=== PATIENT | male | born 1935 | race Caucasian/White ===

== ENCOUNTER 2017-03-28 11:01 | Inpatient (IN) | payer MEDICARE, OTHER ==
[~2017-03-28] VITALS: Ht 177.8 cm; Wt 100.0 kg
[2017-03-28] VITALS (9 sets, daily range): BP systolic 119–161; BP diastolic 50–67
[2017-03-28 11:32] LABS: BASOPHILS # (AUTO) 0.1 X10'3 (0-0.2); BASOPHILS % (AUTO) 0.9 % (0-1); EOSINOPHILS # (AUTO) 0.2 X10'3 (0-0.9); EOSINOPHILS % (AUTO) 2.6 % (0-6); LYMPHOCYTES # (AUTO) 1.2 X10'3 (1.1-4.8); LYMPHOCYTES % (AUTO) 13.1 % (21-51); MEAN CORPUSCULAR HEMOGLOBIN 29.3 PG (27.0-31.0); MEAN CORPUSCULAR HGB CONC 33.2 % (33.0-36.5); MEAN CORPUSCULAR VOLUME 88.3 FL (78-98); MEAN PLATELET VOLUME 6.9 FL (7.4-10.4); MONOCYTES # (AUTO) 0.5 X10'3 (0-0.9); MONOCYTES % (AUTO) 5.9 % (2-12); NEUTROPHILS # (AUTO) 7.2 X10'3 (1.8-7.7); NEUTROPHILS % (AUTO) 77.5 % (42-75); PLATELET COUNT 360 X10'3 (140-440); RED BLOOD COUNT 2.08 X10'6 (4.70-6.10); RED CELL DISTRIBUTION WIDTH 16.2 % (11.5-14.5); WHITE BLOOD COUNT 9.3 X10'3 (4.5-11.0)
[2017-03-28 11:37] LABS: HEMATOCRIT 18.3 % (42.0-52.0); HEMOGLOBIN 6.1 g/dl (14.0-17.9)
[2017-03-28 11:41] LABS: PARTIAL THROMBOPLASTIN TIME 26 SECONDS (22-32); PROTHROMBIN TIME 10.7 SECONDS (9.0-12.0)
[2017-03-28 11:53] LABS: ALANINE AMINOTRANSFERASE 23 U/L (12-78); ALBUMIN 3.3 G/DL (3.4-5.0); ALBUMIN/GLOBULIN RATIO 1.1 (1.1-1.5); ALKALINE PHOSPHATASE 58 IU/L (46-116); ANION GAP 11 (8-16); ASPARTATE AMINO TRANSFERASE 24 U/L (10-37); BILIRUBIN,TOTAL 0.3 MG/DL (0.1-1.0); BLOOD UREA NITROGEN 29 MG/DL (7-18); BUN/CREATININE RATIO 19.3 (5.4-32.0); CALCIUM 8.6 MG/DL (8.5-10.1); CHLORIDE 104 MMOL/L (99-107); GLUCOSE 148 MG/DL (70-104); POTASSIUM 4.2 MMOL/L (3.5-5.1); SODIUM 138 MMOL/L (135-145); TOTAL PROTEIN 6.4 G/DL (6.4-8.2); eGFR 45 ML/MIN
[2017-03-28] MEDS ORDERED: magnesium 2GM in 50ml NS 50 ML IV PRN (12:20)
[2017-03-28] MEDS ORDERED: acetaminophen 325mg tablet PO PRN (12:20)
[2017-03-28] MEDS ORDERED: potassium Cl 20 mEq SR tablet PO PRN ×2 (12:20)
[2017-03-28] MEDS ORDERED: magnesium Cl slow-release 64mg tablet PO PRN (12:20)
[2017-03-28] MEDS ORDERED: magnesium hydroxide 30ml (MOM) UD suspension PO PRN (12:20)
[2017-03-28] MEDS ORDERED: potassium Cl 40MEQ/NS 500ml 500 ML IV PRN ×2 (12:20)
[2017-03-28] MEDS ORDERED: magnesium 4gm in 100ml NS 100 ML IV PRN (12:20)
[2017-03-28] MEDS ORDERED: mag hydrox/Alum hydrox/simeth 30ml oral suspension PO PRN (12:20)
[2017-03-28] MEDS ORDERED: ondansetron/PF 4mg/2ml inj IV PRN (12:20)
[2017-03-28 13:47] LABS: OCCULT BLOOD STOOL POSITIVE (Neg)
[2017-03-28 14:16] LABS: HEMOGLOBIN A1C 6.5 % (4.5-6.2)
[2017-03-28] MEDS ORDERED: INSU100V9 SQ (14:29)
[2017-03-28] MEDS ORDERED: VITA1TAB20 PO (14:29)
[2017-03-28] MEDS ORDERED: HUM7525 SQ (14:29)
[2017-03-28] MEDS ORDERED: TERA10CA4 PO (14:29)
[2017-03-28] MEDS ORDERED: OMEP-50 PO (14:29)
[2017-03-28] MEDS ORDERED: CHOL400C8 PO (14:29)
[2017-03-28] MEDS ORDERED: CARSR60C PO (14:29)
[2017-03-28] MEDS ORDERED: UBID100C16 PO (14:29)
[2017-03-28] MEDS ORDERED: VITA100D6 PO (14:29)
[2017-03-28] MEDS ORDERED: LISI-600 PO (14:29)
[2017-03-28] MEDS ORDERED: IRON150C5 PO (14:29)
[2017-03-28] MEDS ORDERED: METF500T4 PO (14:29)
[2017-03-28] MEDS ORDERED: ASPI-611 PO (14:29)
[2017-03-28] MEDS ORDERED: ATOR20TA PO (14:29)
[2017-03-28] MEDS ORDERED: dextrose ORAL solution 15 GM/59 ML bottle PO PRN ×2 (16:45)
[2017-03-28] MEDS ORDERED: insulin Lispro (HumaLOG) vial - multi-dose SQ SCH (16:45)
[2017-03-28] MEDS ORDERED: dextrose 50%-water 50ml dispensing syringe IV PRN ×2 (16:45)
[2017-03-28] MEDS ORDERED: glucagon, human recombinant 1mg kit SUBCUT PRN (16:45)
[2017-03-28] MEDS ORDERED: MESSAGE TO PHARMACY PO ONE (16:45)
[2017-03-28 17:50] LABS: BASOPHILS # (AUTO) 0.1 X10'3 (0-0.2); BASOPHILS % (AUTO) 0.9 % (0-1); EOSINOPHILS # (AUTO) 0.2 X10'3 (0-0.9); EOSINOPHILS % (AUTO) 1.9 % (0-6); HEMOGLOBIN 8.8 g/dl (14.0-17.9); LYMPHOCYTES # (AUTO) 1.3 X10'3 (1.1-4.8); LYMPHOCYTES % (AUTO) 10.7 % (21-51); MEAN CORPUSCULAR HEMOGLOBIN 29.9 PG (27.0-31.0); MEAN CORPUSCULAR VOLUME 87.7 FL (78-98); MEAN PLATELET VOLUME 7.2 FL (7.4-10.4); MONOCYTES # (AUTO) 0.7 X10'3 (0-0.9); MONOCYTES % (AUTO) 5.8 % (2-12); NEUTROPHILS # (AUTO) 9.7 X10'3 (1.8-7.7); NEUTROPHILS % (AUTO) 80.7 % (42-75); PLATELET COUNT 374 X10'3 (140-440); RED BLOOD COUNT 2.96 X10'6 (4.70-6.10); RED CELL DISTRIBUTION WIDTH 15.9 % (11.5-14.5)
[2017-03-28] MEDS: carVEDilol 3.125mg tablet PO SCH (20:34)
[2017-03-28] MEDS: insulin glargine (Lantus) pen - multi-dose SQ SCH (21:00)
[2017-03-29] VITALS (12 sets, daily range): BP systolic 111–141; BP diastolic 41–72
[2017-03-29 00:02] LABS: HEMOGLOBIN 9.7 g/dl (14.0-17.9); MEAN CORPUSCULAR HGB CONC 33.5 % (33.0-36.5); MEAN CORPUSCULAR VOLUME 89.8 FL (78-98); MEAN PLATELET VOLUME 7.5 FL (7.4-10.4); PLATELET COUNT 377 X10'3 (140-440); RED BLOOD COUNT 3.23 X10'6 (4.70-6.10); RED CELL DISTRIBUTION WIDTH 15.6 % (11.5-14.5); WHITE BLOOD COUNT 15.8 X10'3 (4.5-11.0)
[2017-03-29] MEDS ORDERED: furosemide 10 MG/1 ML 10ml inj IV ONE (00:05)
[2017-03-29] MEDS ORDERED: normal saline 1000ml 1,000 ML IV SCH (06:18)
[2017-03-29] MEDS ORDERED: simethicone 40mg/0.6ml oral drops 30ml MC ONE (06:20)
[2017-03-29] MEDS ORDERED: MIDAZolam 1mg/ml 10ml vial IV PRN (06:20)
[2017-03-29] MEDS ORDERED: fentaNYL/PF 50MCG/1 ML 2ML syringe IV PRN (06:20)
[2017-03-29] MEDS ORDERED: LIDOcaine Viscous 15ml cup PO ONE (06:20)
[2017-03-29 06:42] LABS: BASOPHILS # (AUTO) 0.1 X10'3 (0-0.2); BASOPHILS % (AUTO) 0.7 % (0-1); EOSINOPHILS # (AUTO) 0.3 X10'3 (0-0.9); EOSINOPHILS % (AUTO) 1.7 % (0-6); HEMOGLOBIN 9.3 g/dl (14.0-17.9); LYMPHOCYTES # (AUTO) 1.7 X10'3 (1.1-4.8); MEAN CORPUSCULAR HEMOGLOBIN 30.3 PG (27.0-31.0); MEAN CORPUSCULAR HGB CONC 34.5 % (33.0-36.5); MEAN CORPUSCULAR VOLUME 87.7 FL (78-98); MEAN PLATELET VOLUME 7.3 FL (7.4-10.4); MONOCYTES % (AUTO) 7.1 % (2-12); NEUTROPHILS # (AUTO) 11.4 X10'3 (1.8-7.7); NEUTROPHILS % (AUTO) 78.5 % (42-75); PLATELET COUNT 383 X10'3 (140-440); RED BLOOD COUNT 3.08 X10'6 (4.70-6.10); RED CELL DISTRIBUTION WIDTH 15.8 % (11.5-14.5); WHITE BLOOD COUNT 14.5 X10'3 (4.5-11.0)
[2017-03-29 07:31] LABS: ALANINE AMINOTRANSFERASE 22 U/L (12-78); ALBUMIN 3.4 G/DL (3.4-5.0); ALBUMIN/GLOBULIN RATIO 1.1 (1.1-1.5); ALKALINE PHOSPHATASE 67 IU/L (46-116); ANION GAP 11 (8-16); ASPARTATE AMINO TRANSFERASE 25 U/L (10-37); BILIRUBIN,TOTAL 0.7 MG/DL (0.1-1.0); BLOOD UREA NITROGEN 25 MG/DL (7-18); BUN/CREATININE RATIO 17.9 (5.4-32.0); CALCIUM 8.8 MG/DL (8.5-10.1); CHLORIDE 102 MMOL/L (99-107); CHOL/HDL RATIO 2.9 (0.00-4.99); CHOLESTEROL 128 MG/DL (0-200); GLUCOSE 154 MG/DL (70-104); HDL CHOLESTEROL 44 MG/DL (35-60); LDL CHOLESTEROL 74 MG/DL (50-100); POTASSIUM 4.2 MMOL/L (3.5-5.1); SODIUM 137 MMOL/L (135-145); TOTAL CARBON DIOXIDE 24.1 MMOL/L (24-32); TOTAL PROTEIN 6.6 G/DL (6.4-8.2); TRIGLYCERIDES 78 MG/DL (20-135); eGFR 48 ML/MIN
[2017-03-29] MEDS: K and/or MAG REPLACEMENT MC SCH (08:00)
[2017-03-29] MEDS: carVEDilol 3.125mg tablet PO SCH ×2 (08:00→20:00)
[2017-03-29] MEDS ORDERED: MIDAZolam 1mg/ml 10ml vial ONE (09:20)
[2017-03-29] MEDS ORDERED: LIDOcaine Viscous 15ml cup ONE (09:20)
[2017-03-29] MEDS ORDERED: fentaNYL/PF 50MCG/1 ML 2ML syringe ONE (09:20)
[2017-03-29] MEDS ORDERED: pneumococcal 23-VAL P-sac vacc 25 mcg/0.5ml vial IMVAC ONE (10:00)
[2017-03-29 12:49] LABS: BASOPHILS # (AUTO) 0.1 X10'3 (0-0.2); BASOPHILS % (AUTO) 0.9 % (0-1); EOSINOPHILS # (AUTO) 0.1 X10'3 (0-0.9); EOSINOPHILS % (AUTO) 0.8 % (0-6); HEMATOCRIT 26.6 % (42.0-52.0); HEMOGLOBIN 8.9 g/dl (14.0-17.9); LYMPHOCYTES # (AUTO) 1.2 X10'3 (1.1-4.8); LYMPHOCYTES % (AUTO) 10.3 % (21-51); MEAN CORPUSCULAR HEMOGLOBIN 29.9 PG (27.0-31.0); MEAN CORPUSCULAR HGB CONC 33.6 % (33.0-36.5); MEAN PLATELET VOLUME 7.5 FL (7.4-10.4); MONOCYTES # (AUTO) 0.8 X10'3 (0-0.9); MONOCYTES % (AUTO) 6.6 % (2-12); NEUTROPHILS # (AUTO) 9.6 X10'3 (1.8-7.7); NEUTROPHILS % (AUTO) 81.4 % (42-75); PLATELET COUNT 388 X10'3 (140-440); RED BLOOD COUNT 2.99 X10'6 (4.70-6.10); RED CELL DISTRIBUTION WIDTH 15.9 % (11.5-14.5); WHITE BLOOD COUNT 11.8 X10'3 (4.5-11.0)
[2017-03-29] MEDS ORDERED: diatr meglu/diatrizoate 30ml oral sol.-(3 dose) bottle PO PRN (17:25)
[2017-03-29 18:20] LABS: BASOPHILS % (AUTO) 0.5 % (0-1); EOSINOPHILS # (AUTO) 0.2 X10'3 (0-0.9); EOSINOPHILS % (AUTO) 1.7 % (0-6); HEMATOCRIT 26.4 % (42.0-52.0); LYMPHOCYTES # (AUTO) 1.8 X10'3 (1.1-4.8); MEAN CORPUSCULAR HEMOGLOBIN 30.2 PG (27.0-31.0); MEAN CORPUSCULAR HGB CONC 34.2 % (33.0-36.5); MEAN CORPUSCULAR VOLUME 88.3 FL (78-98); MEAN PLATELET VOLUME 7.4 FL (7.4-10.4); MONOCYTES % (AUTO) 8.9 % (2-12); NEUTROPHILS # (AUTO) 7.8 X10'3 (1.8-7.7); NEUTROPHILS % (AUTO) 71.9 % (42-75); PLATELET COUNT 375 X10'3 (140-440); RED BLOOD COUNT 2.99 X10'6 (4.70-6.10); RED CELL DISTRIBUTION WIDTH 16.1 % (11.5-14.5); WHITE BLOOD COUNT 10.8 X10'3 (4.5-11.0)
[2017-03-29] MEDS ORDERED: diatr meglu/diatrizoate 30ml oral sol.-(3 dose) bottle PO SCH (18:21)
[2017-03-29] MEDS: insulin glargine (Lantus) pen - multi-dose SQ SCH (21:00)
[2017-03-29] MEDS: diatr meglu/diatrizoate 30ml oral sol.-(3 dose) bottle PO SCH (21:38)
[2017-03-30] VITALS (10 sets, daily range): BP systolic 111–142; BP diastolic 41–61
[2017-03-30 01:53] LABS: BASOPHILS # (AUTO) 0.1 X10'3 (0-0.2); BASOPHILS % (AUTO) 0.9 % (0-1); EOSINOPHILS # (AUTO) 0.2 X10'3 (0-0.9); EOSINOPHILS % (AUTO) 1.6 % (0-6); HEMATOCRIT 27.9 % (42.0-52.0); HEMOGLOBIN 9.3 g/dl (14.0-17.9); MEAN CORPUSCULAR HEMOGLOBIN 29.7 PG (27.0-31.0); MEAN CORPUSCULAR HGB CONC 33.3 % (33.0-36.5); MEAN CORPUSCULAR VOLUME 89.1 FL (78-98); MEAN PLATELET VOLUME 7.7 FL (7.4-10.4); MONOCYTES # (AUTO) 0.8 X10'3 (0-0.9); MONOCYTES % (AUTO) 8.4 % (2-12); NEUTROPHILS # (AUTO) 6.5 X10'3 (1.8-7.7); NEUTROPHILS % (AUTO) 68.1 % (42-75); PLATELET COUNT 406 X10'3 (140-440); RED BLOOD COUNT 3.13 X10'6 (4.70-6.10); RED CELL DISTRIBUTION WIDTH 15.6 % (11.5-14.5); WHITE BLOOD COUNT 9.6 X10'3 (4.5-11.0)
[2017-03-30 07:06] LABS: BASOPHILS # (AUTO) 0.1 X10'3 (0-0.2); BASOPHILS % (AUTO) 1.1 % (0-1); EOSINOPHILS # (AUTO) 0.2 X10'3 (0-0.9); EOSINOPHILS % (AUTO) 2.9 % (0-6); HEMATOCRIT 25.2 % (42.0-52.0); HEMOGLOBIN 8.7 g/dl (14.0-17.9); LYMPHOCYTES # (AUTO) 2.1 X10'3 (1.1-4.8); LYMPHOCYTES % (AUTO) 24.5 % (21-51); MEAN CORPUSCULAR HEMOGLOBIN 30.3 PG (27.0-31.0); MEAN CORPUSCULAR HGB CONC 34.5 % (33.0-36.5); MEAN CORPUSCULAR VOLUME 87.7 FL (78-98); MEAN PLATELET VOLUME 7.5 FL (7.4-10.4); MONOCYTES # (AUTO) 0.8 X10'3 (0-0.9); MONOCYTES % (AUTO) 9.9 % (2-12); NEUTROPHILS # (AUTO) 5.3 X10'3 (1.8-7.7); NEUTROPHILS % (AUTO) 61.6 % (42-75); PLATELET COUNT 399 X10'3 (140-440); RED BLOOD COUNT 2.87 X10'6 (4.70-6.10); WHITE BLOOD COUNT 8.5 X10'3 (4.5-11.0)
[2017-03-30] MEDS: diatr meglu/diatrizoate 30ml oral sol.-(3 dose) bottle PO SCH ×2 (07:20→10:21)
[2017-03-30 07:23] LABS: ALANINE AMINOTRANSFERASE 21 U/L (12-78); ALBUMIN/GLOBULIN RATIO 0.9 (1.1-1.5); ALKALINE PHOSPHATASE 58 IU/L (46-116); ANION GAP 6 (8-16); ASPARTATE AMINO TRANSFERASE 19 U/L (10-37); BILIRUBIN,TOTAL 0.6 MG/DL (0.1-1.0); BLOOD UREA NITROGEN 21 MG/DL (7-18); BUN/CREATININE RATIO 16.2 (5.4-32.0); CALCIUM 8.7 MG/DL (8.5-10.1); CHLORIDE 104 MMOL/L (99-107); GLUCOSE 142 MG/DL (70-104); MAGNESIUM 2.1 MG/DL (1.5-2.4); POTASSIUM 4.3 MMOL/L (3.5-5.1); SODIUM 138 MMOL/L (135-145); TOTAL CARBON DIOXIDE 27.7 MMOL/L (24-32); TOTAL PROTEIN 6.3 G/DL (6.4-8.2); eGFR 53 ML/MIN
[2017-03-30] MEDS: K and/or MAG REPLACEMENT MC SCH (08:00)
[2017-03-30] MEDS: carVEDilol 3.125mg tablet PO SCH (09:30)
[2017-03-30] MEDS ORDERED: furosemide 20 MG/2 ML vial IV ONE (10:10)
[2017-03-30 15:34] LABS: BASOPHILS % (AUTO) 0.5 % (0-1); EOSINOPHILS # (AUTO) 0.2 X10'3 (0-0.9); EOSINOPHILS % (AUTO) 2.5 % (0-6); HEMATOCRIT 32.1 % (42.0-52.0); HEMOGLOBIN 10.8 g/dl (14.0-17.9); MEAN CORPUSCULAR HEMOGLOBIN 30.2 PG (27.0-31.0); MEAN CORPUSCULAR HGB CONC 33.5 % (33.0-36.5); MEAN CORPUSCULAR VOLUME 90.2 FL (78-98); MEAN PLATELET VOLUME 7.5 FL (7.4-10.4); MONOCYTES # (AUTO) 0.8 X10'3 (0-0.9); MONOCYTES % (AUTO) 8.5 % (2-12); NEUTROPHILS # (AUTO) 6.8 X10'3 (1.8-7.7); NEUTROPHILS % (AUTO) 68.5 % (42-75); PLATELET COUNT 417 X10'3 (140-440); RED BLOOD COUNT 3.56 X10'6 (4.70-6.10); RED CELL DISTRIBUTION WIDTH 15.4 % (11.5-14.5); WHITE BLOOD COUNT 9.9 X10'3 (4.5-11.0)
[2017-03-30 19:19] LABS: BASOPHILS # (AUTO) 0.1 X10'3 (0-0.2); BASOPHILS % (AUTO) 0.9 % (0-1); EOSINOPHILS # (AUTO) 0.2 X10'3 (0-0.9); EOSINOPHILS % (AUTO) 2.6 % (0-6); HEMATOCRIT 30.6 % (42.0-52.0); HEMOGLOBIN 10.3 g/dl (14.0-17.9); LYMPHOCYTES # (AUTO) 1.8 X10'3 (1.1-4.8); LYMPHOCYTES % (AUTO) 19.9 % (21-51); MEAN CORPUSCULAR HEMOGLOBIN 30.5 PG (27.0-31.0); MEAN CORPUSCULAR HGB CONC 33.8 % (33.0-36.5); MEAN CORPUSCULAR VOLUME 90.2 FL (78-98); MONOCYTES # (AUTO) 0.9 X10'3 (0-0.9); MONOCYTES % (AUTO) 9.8 % (2-12); NEUTROPHILS # (AUTO) 5.9 X10'3 (1.8-7.7); NEUTROPHILS % (AUTO) 66.8 % (42-75); PLATELET COUNT 412 X10'3 (140-440); RED BLOOD COUNT 3.39 X10'6 (4.70-6.10); RED CELL DISTRIBUTION WIDTH 16.2 % (11.5-14.5); WHITE BLOOD COUNT 8.9 X10'3 (4.5-11.0)
[2017-03-30] MEDS ORDERED: lisinopril 2.5mg tablet PO SCH (21:00)
[2017-03-30] MEDS: insulin glargine (Lantus) pen - multi-dose SQ SCH (21:00)
[2017-03-31 03:00] VITALS: BP 108/55
[2017-03-31 06:00] VITALS: BP 129/57
[2017-03-31 06:45] LABS: BASOPHILS # (AUTO) 0.1 X10'3 (0-0.2); BASOPHILS % (AUTO) 0.7 % (0-1); EOSINOPHILS # (AUTO) 0.4 X10'3 (0-0.9); HEMATOCRIT 28.8 % (42.0-52.0); HEMOGLOBIN 9.6 g/dl (14.0-17.9); LYMPHOCYTES # (AUTO) 1.9 X10'3 (1.1-4.8); LYMPHOCYTES % (AUTO) 22.4 % (21-51); MEAN CORPUSCULAR HEMOGLOBIN 30.3 PG (27.0-31.0); MEAN CORPUSCULAR HGB CONC 33.4 % (33.0-36.5); MEAN CORPUSCULAR VOLUME 90.5 FL (78-98); MEAN PLATELET VOLUME 7.3 FL (7.4-10.4); MONOCYTES # (AUTO) 0.9 X10'3 (0-0.9); MONOCYTES % (AUTO) 9.9 % (2-12); NEUTROPHILS # (AUTO) 5.4 X10'3 (1.8-7.7); PLATELET COUNT 400 X10'3 (140-440); RED BLOOD COUNT 3.18 X10'6 (4.70-6.10); RED CELL DISTRIBUTION WIDTH 15.8 % (11.5-14.5); WHITE BLOOD COUNT 8.7 X10'3 (4.5-11.0)
[2017-03-31 07:09] LABS: ALANINE AMINOTRANSFERASE 13 U/L (12-78); ALBUMIN 2.8 G/DL (3.4-5.0); ALBUMIN/GLOBULIN RATIO 0.9 (1.1-1.5); ALKALINE PHOSPHATASE 54 IU/L (46-116); ANION GAP 7 (8-16); ASPARTATE AMINO TRANSFERASE 17 U/L (10-37); BILIRUBIN,TOTAL 0.6 MG/DL (0.1-1.0); BLOOD UREA NITROGEN 19 MG/DL (7-18); BUN/CREATININE RATIO 17.3 (5.4-32.0); CALCIUM 8.8 MG/DL (8.5-10.1); CHLORIDE 105 MMOL/L (99-107); GLUCOSE 158 MG/DL (70-104); MAGNESIUM 1.9 MG/DL (1.5-2.4); SODIUM 139 MMOL/L (135-145); TOTAL CARBON DIOXIDE 27.5 MMOL/L (24-32); TOTAL PROTEIN 5.9 G/DL (6.4-8.2); eGFR 64 ML/MIN
[2017-03-31] MEDS: K and/or MAG REPLACEMENT MC SCH (08:00)
[2017-03-31 11:00] VITALS: BP 136/62
[2017-03-31 12:03] LABS: BASOPHILS # (AUTO) 0.1 X10'3 (0-0.2); BASOPHILS % (AUTO) 0.6 % (0-1); EOSINOPHILS # (AUTO) 0.4 X10'3 (0-0.9); EOSINOPHILS % (AUTO) 4.6 % (0-6); HEMOGLOBIN 10.3 g/dl (14.0-17.9); LYMPHOCYTES # (AUTO) 1.6 X10'3 (1.1-4.8); MEAN CORPUSCULAR HEMOGLOBIN 30.2 PG (27.0-31.0); MEAN CORPUSCULAR HGB CONC 33.1 % (33.0-36.5); MEAN CORPUSCULAR VOLUME 91.1 FL (78-98); MEAN PLATELET VOLUME 7.2 FL (7.4-10.4); MONOCYTES # (AUTO) 0.8 X10'3 (0-0.9); MONOCYTES % (AUTO) 9.2 % (2-12); NEUTROPHILS # (AUTO) 5.8 X10'3 (1.8-7.7); NEUTROPHILS % (AUTO) 66.6 % (42-75); PLATELET COUNT 429 X10'3 (140-440); RED CELL DISTRIBUTION WIDTH 15.7 % (11.5-14.5); WHITE BLOOD COUNT 8.6 X10'3 (4.5-11.0)
== END 2017-03-31 15:44 | disposition home or self-care (01) | DRG 377 ==
LOC: ER 11:01 → ED HOLD 12:18 → PCU 3S 18:55
PROVIDERS: ADMIT Internal Medicine; ATTEND Family Medicine
PROC: 30233N1 Transfusion of Nonautologous Red Blood Cells into Peripheral Vein, Percutaneous Approach (ICD-10-PCS; principal; 2017-03-28)
PROC: 0DJ08ZZ Inspection of Upper Intestinal Tract, Via Natural or Artificial Opening Endoscopic (ICD-10-PCS; 2017-03-29)
PROC: BW211ZZ Computerized Tomography (CT Scan) of Abdomen and Pelvis using Low Osmolar Contrast (ICD-10-PCS; 2017-03-30)
DX: K92.2 Gastrointestinal hemorrhage, unspecified (principal); I21.4 Non-ST elevation (NSTEMI) myocardial infarction; E11.51 Type 2 diabetes mellitus with diabetic peripheral angiopathy without gangrene; I08.1 Rheumatic disorders of both mitral and tricuspid valves; I44.1 Atrioventricular block, second degree; I50.22 Chronic systolic (congestive) heart failure; I11.0 Hypertensive heart disease with heart failure; D62 Acute posthemorrhagic anemia; I42.9 Cardiomyopathy, unspecified; E66.9 Obesity, unspecified; E78.5 Hyperlipidemia, unspecified; I25.10 Atherosclerotic heart disease of native coronary artery without angina pectoris; I45.10 Unspecified right bundle-branch block; K21.9 Gastro-esophageal reflux disease without esophagitis; K64.9 Unspecified hemorrhoids; Z95.5 Presence of coronary angioplasty implant and graft; Z95.1 Presence of aortocoronary bypass graft; Z79.82 Long term (current) use of aspirin; I25.2 Old myocardial infarction; Z79.84 Long term (current) use of oral hypoglycemic drugs; Z79.899 Other long term (current) drug therapy; Z68.31 Body mass index [BMI] 31.0-31.9, adult
CPT/HCPCS: 36415; 71045; 74176; 80053; 80061; 82272; 82948; 83036; 83735; 83880; 84484; 85025; 85027; 85610; 85730; 86885; 86900; 86901; 86920; 87070; 93005; 93306; 99285; A6258; G0500; J1815; J1940; J2250; J3010; J7030; P9016; Q9963

== ENCOUNTER 2017-08-03 10:09 | Observation (INO) | payer OTHER, MEDICARE ==
[2017-08-03] VITALS (15 sets, daily range): BP systolic 135–170; BP diastolic 64–106
[~2017-08-03] VITALS: Ht 180.3 cm; Wt 95.5 kg
[~2017-08-03 10:09] MED LIST: ASPI-611 PO; ATOR20TA PO; CARSR60C PO; CHOL400C8 PO; HUM7525 SQ; INSU100V9 SQ; IRON150C5 PO; LISI-600 PO; METF500T6 PO; OMEP-50 PO; TERA10CA4 PO; UBID100C16 PO; VITA100D6 PO; VITA1TAB20 PO
[2017-08-03] MEDS ORDERED: normal saline 1000ML IV soln IV ONE (10:40)
[2017-08-03 11:03] LABS: BASOPHILS # (AUTO) 0.1 X10'3 (0-0.2); BASOPHILS % (AUTO) 1.6 % (0-1); EOSINOPHILS # (AUTO) 0.6 X10'3 (0-0.9); EOSINOPHILS % (AUTO) 7.1 % (0-6); LYMPHOCYTES # (AUTO) 1.6 X10'3 (1.1-4.8); LYMPHOCYTES % (AUTO) 18.9 % (21-51); MEAN CORPUSCULAR HEMOGLOBIN 26.3 PG (27.0-31.0); MEAN CORPUSCULAR HGB CONC 32.2 % (33.0-36.5); MEAN CORPUSCULAR VOLUME 81.8 FL (78-98); MEAN PLATELET VOLUME 7.5 FL (7.4-10.4); MONOCYTES # (AUTO) 0.8 X10'3 (0-0.9); MONOCYTES % (AUTO) 9.4 % (2-12); NEUTROPHILS # (AUTO) 5.2 X10'3 (1.8-7.7); PLATELET COUNT 310 X10'3 (140-440); RED BLOOD COUNT 2.47 X10'6 (4.70-6.10); RED CELL DISTRIBUTION WIDTH 17.1 % (11.5-14.5); WHITE BLOOD COUNT 8.2 X10'3 (4.5-11.0)
[2017-08-03 11:08] LABS: HEMATOCRIT 20.2 % (42.0-52.0); HEMOGLOBIN 6.5 g/dl (14.0-17.9)
[2017-08-03 11:13] LABS: PROTHROMBIN TIME 10.6 SECONDS (9.0-12.0)
[2017-08-03 11:26] LABS: ALANINE AMINOTRANSFERASE 18 U/L (12-78); ALBUMIN 3.4 G/DL (3.4-5.0); ALKALINE PHOSPHATASE 56 IU/L (46-116); ANION GAP 10 (8-16); ASPARTATE AMINO TRANSFERASE 15 U/L (10-37); BILIRUBIN,TOTAL 0.3 MG/DL (0.1-1.0); BLOOD UREA NITROGEN 20 MG/DL (7-18); BUN/CREATININE RATIO 16.7 (5.4-32.0); CALCIUM 8.7 MG/DL (8.5-10.1); CHLORIDE 105 MMOL/L (99-107); GLUCOSE 115 MG/DL (70-104); POTASSIUM 4.5 MMOL/L (3.5-5.1); SODIUM 140 MMOL/L (135-145); TOTAL CARBON DIOXIDE 25.3 MMOL/L (24-32); TOTAL PROTEIN 6.9 G/DL (6.4-8.2); eGFR 58 ML/MIN
[2017-08-03 11:36] LABS: CLARITY,URINE CLEAR (Clear); COLOR,URINE YELLOW (Yellow); GLUCOSE, URINE NEGATIVE (Neg); KETONES,URINE NEGATIVE (Neg); LEUKOCYTE ESTERASE ,URINE NEGATIVE (Neg); NITRITES, URINE NEGATIVE (Neg); OCCULT BLOOD,URINE NEGATIVE (Neg); PROTEIN,URINE NEGATIVE (Neg); UA COLLECTION TYPE CLN CATCH MIDSTREAM; UROBILINOGEN,URINE 0.2 E.U/dL (0.2-1.0)
[2017-08-03] MEDS ORDERED: magnesium Cl slow-release 64mg tablet PO PRN (11:55)
[2017-08-03] MEDS ORDERED: magnesium 4gm in 100ml NS 100 ML IV PRN (11:55)
[2017-08-03] MEDS ORDERED: magnesium hydroxide 30ml (MOM) UD suspension PO PRN (11:55)
[2017-08-03] MEDS ORDERED: potassium Cl 40MEQ/NS 500ml 500 ML IV PRN ×2 (11:55)
[2017-08-03] MEDS ORDERED: potassium Cl 20 mEq SR tablet PO PRN ×2 (11:55)
[2017-08-03] MEDS ORDERED: magnesium 2GM in 50ml NS 50 ML IV PRN (11:55)
[2017-08-03] MEDS ORDERED: ondansetron/PF 4mg/2ml inj IV PRN (11:55)
[2017-08-03] MEDS ORDERED: mag hydrox/Alum hydrox/simeth 30ml oral suspension PO PRN (11:55)
[2017-08-03] MEDS ORDERED: acetaminophen 325mg tablet PO PRN (11:55)
[2017-08-03] MEDS ORDERED: K and/or MAG REPLACEMENT MC SCH (11:55)
[2017-08-03] MEDS ORDERED: CARV3.122 PO (12:21)
[2017-08-03] MEDS ORDERED: FURO20TA4 PO (12:29)
[2017-08-03 13:07] LABS: HEMOGLOBIN A1C 6.5 % (4.5-6.2)
[2017-08-03] MEDS ORDERED: furosemide 40mg/4ml inj IV ONE (16:40)
[2017-08-03] MEDS ORDERED: carVEDilol 3.125mg tablet PO SCH (20:00)
[2017-08-03] MEDS ORDERED: temazepam 15mg capsule PO PRN (21:00)
[2017-08-03] MEDS ORDERED: lisinopril 20mg tablet PO SCH (21:00)
[2017-08-03] MEDS ORDERED: insulin glargine (Lantus) pen - multi-dose SQ SCH (21:00)
[2017-08-03] MEDS ORDERED: atorvastatin 20mg tablet PO SCH (21:00)
[2017-08-04] MEDS ORDERED: pantoprazole 40mg Tablet.DR PO SCH (07:30)
[2017-08-04] MEDS ORDERED: aspirin 81mg tablet.DR PO SCH (08:00)
== END 2017-08-03 18:59 | disposition home or self-care (01) ==
LOC: ER 10:09 → ED HOLD 11:52
PROVIDERS: ADMIT Family Medicine; ATTEND Family Medicine
DX: D64.9 Anemia, unspecified (principal); I11.0 Hypertensive heart disease with heart failure; I50.22 Chronic systolic (congestive) heart failure; E78.5 Hyperlipidemia, unspecified; E11.9 Type 2 diabetes mellitus without complications; I25.10 Atherosclerotic heart disease of native coronary artery without angina pectoris; K21.9 Gastro-esophageal reflux disease without esophagitis; Z79.4 Long term (current) use of insulin; Z95.1 Presence of aortocoronary bypass graft
CPT/HCPCS: 36415; 36430; 71045; 80053; 81003; 83036; 85025; 85610; 86885; 86900; 86901; 86920; 87070; 96374; 99291; G0378; J1940; J7030; P9016; 93005; 96361; J1815

== ENCOUNTER 2018-09-17 18:10 | Inpatient (IN) | payer MEDICARE, OTHER ==
[~2018-09-17] VITALS: Ht 177.8 cm; Wt 97.0 kg
[~2018-09-17 18:10] MED LIST changes: -CARSR60C PO; +CARV3.122 PO; +FURO20TA4 PO; -METF500T6 PO; -TERA10CA4 PO
[2018-09-17 18:48] LABS: HEMOGLOBIN 8.9 g/dl (14.0-17.9); MEAN PLATELET VOLUME 7.5 FL (7.4-10.4); WHITE BLOOD COUNT 7.2 X10'3 (4.5-11.0)
[2018-09-17 18:50] LABS: BASOPHILS # (AUTO) 0.1 X10'3 (0-0.2); BASOPHILS % (AUTO) 1.9 % (0-1); EOSINOPHILS # (AUTO) 0.4 X10'3 (0-0.9); EOSINOPHILS % (AUTO) 5.9 % (0-6); HEMATOCRIT 26.3 % (42.0-52.0); LYMPHOCYTES # (AUTO) 1.3 X10'3 (1.1-4.8); MEAN CORPUSCULAR HGB CONC 33.8 g/dL (33.0-36.5); MEAN CORPUSCULAR VOLUME 97.7 FL (78-98); MONOCYTES # (AUTO) 0.6 X10'3 (0-0.9); MONOCYTES % (AUTO) 8.8 % (2-12); NEUTROPHILS # (AUTO) 4.7 X10'3 (1.8-7.7); NEUTROPHILS % (AUTO) 65.4 % (42-75); PLATELET COUNT 325 X10'3 (140-440); RED BLOOD COUNT 2.69 X10'6 (4.70-6.10); RED CELL DISTRIBUTION WIDTH 19.2 % (11.5-14.5)
[2018-09-17 18:57] LABS: ALANINE AMINOTRANSFERASE 22 U/L (12-78); ALBUMIN 3.4 G/DL (3.4-5.0); ALKALINE PHOSPHATASE 61 IU/L (46-116); ANION GAP 7 (8-16); ASPARTATE AMINO TRANSFERASE 11 U/L (10-37); BILIRUBIN,TOTAL 0.4 MG/DL (0.1-1.0); BLOOD UREA NITROGEN 22 MG/DL (7-18); CALCIUM 8.6 MG/DL (8.5-10.1); CHLORIDE 103 MMOL/L (99-107); GLUCOSE 149 MG/DL (70-104); POTASSIUM 4.6 MMOL/L (3.5-5.1); SODIUM 134 MMOL/L (135-145); TOTAL PROTEIN 6.8 G/DL (6.4-8.2); eGFR 64 ML/MIN
[2018-09-17 19:02] LABS: PARTIAL THROMBOPLASTIN TIME 30 SECONDS (22-32)
[2018-09-17 19:29] LABS: ANISOCYTOSIS 2+; ELLIPTOCYTES FEW; PLATELET ESTIMATE NORMAL
[2018-09-17] MEDS ORDERED: aspirin 325mg tablet PO ONE (19:55)
[2018-09-17] MEDS ORDERED: TERA2CAP4 PO (20:05)
[2018-09-17] MEDS ORDERED: UBID100C16 PO (20:06)
[2018-09-17] MEDS ORDERED: dextrose ORAL solution 15 GM/59 ML bottle PO PRN ×2 (20:40)
[2018-09-17] MEDS ORDERED: MESSAGE TO PHARMACY PO ONE (20:40)
[2018-09-17] MEDS ORDERED: mag hydrox/Alum hydrox/simeth 30ml oral suspension PO PRN (20:40)
[2018-09-17] MEDS ORDERED: acetaminophen 325mg tablet PO PRN ×2 (20:40)
[2018-09-17] MEDS ORDERED: magnesium hydroxide 30ml (MOM) UD suspension PO PRN (20:40)
[2018-09-17] MEDS ORDERED: dextrose 50%-water 50ml dispensing syringe IV PRN ×2 (20:40)
[2018-09-17] MEDS ORDERED: glucagon, human recombinant 1mg kit SUBCUT PRN (20:40)
[2018-09-17] MEDS ORDERED: [UNRECOGNIZED DRUG - OTHER] SQ SCH (21:00)
[2018-09-17] MEDS ORDERED: INSULIN ASPART SQ SCH (21:00)
[2018-09-17] MEDS ORDERED: non-formulary drug (Insulin Glargine,Hum.rec.anlog (Lantus) 20 UNIT) SQ SCH (21:00)
[2018-09-17] MEDS: insulin glargine (Lantus) pen - multi-dose SQ SCH (21:00)
[2018-09-17] MEDS ORDERED: INSULIN ASPART PROTAMINE SQ SCH (21:00)
[2018-09-17] MEDS: lisinopril 20mg tablet PO SCH (21:08)
[2018-09-17] MEDS: atorvastatin 20mg tablet PO SCH (21:08)
--- NOTE | 2018-09-17 21:50 | NUR ---
Patient report received from SJ Sesay. Patient arrived on unit via wheelchair, escorted by SJ Schmidt. 2 RN skin check performed with SJ Bowles, MRSA swab taken, patient DARTED, meds reviewed, physician orders reviewed. Belongings put in patient belonging bag and hung in closet, shoes in closet. Patient provided denture case and hearing aid case, remained with patient. Patient's glasses remain with patient. Physical assessment performed. Patient noted to have 5/10 pressure in chest. Will continue to monitor.
[2018-09-17 22:37] LABS: HEMOGLOBIN A1C 6.1 % (4.5-6.2)
[2018-09-17 23:00] VITALS: BP 154/60
[2018-09-17] MEDS ORDERED: carVEDilol 3.125mg tablet PO SCH (23:07)
[2018-09-18] VITALS (14 sets, daily range): BP systolic 87–144; BP diastolic 37–92
[2018-09-18] MEDS ORDERED: heparin 10,000 units/1 ML INJ IV ONE (01:15)
[2018-09-18] MEDS ORDERED: heparin 10,000 units/1 ML INJ IV PRN (01:15)
[2018-09-18] MEDS: heparin 25,000 UNIT/250ml bag 250 ML IV SCH ×2 (01:59→09:45)
--- NOTE | 2018-09-18 05:15 | NUR ---
Weighed patient for heparin protocol and he weighs 97.4 kg.
--- NOTE | 2018-09-18 06:22 | NUR ---
Problems reprioritized. Patient report given, questions answered & plan of care reviewed with SJ Lima.
[2018-09-18 06:44] LABS: BASOPHILS # (AUTO) 0.1 X10'3 (0-0.2); BASOPHILS % (AUTO) 1.3 % (0-1); EOSINOPHILS # (AUTO) 0.3 X10'3 (0-0.9); EOSINOPHILS % (AUTO) 4.2 % (0-6); HEMATOCRIT 25.8 % (42.0-52.0); HEMOGLOBIN 8.6 g/dl (14.0-17.9); LYMPHOCYTES # (AUTO) 1.6 X10'3 (1.1-4.8); LYMPHOCYTES % (AUTO) 18.8 % (21-51); MEAN CORPUSCULAR HEMOGLOBIN 32.8 PG (27.0-31.0); MEAN CORPUSCULAR HGB CONC 33.4 g/dL (33.0-36.5); MEAN CORPUSCULAR VOLUME 98.3 FL (78-98); MEAN PLATELET VOLUME 7.9 FL (7.4-10.4); MONOCYTES # (AUTO) 0.8 X10'3 (0-0.9); MONOCYTES % (AUTO) 9.1 % (2-12); NEUTROPHILS # (AUTO) 5.6 X10'3 (1.8-7.7); NEUTROPHILS % (AUTO) 66.6 % (42-75); PLATELET COUNT 286 X10'3 (140-440); RED BLOOD COUNT 2.63 X10'6 (4.70-6.10); WHITE BLOOD COUNT 8.4 X10'3 (4.5-11.0)
[2018-09-18 06:58] LABS: ALBUMIN 3.3 G/DL (3.4-5.0); ANION GAP 9 (8-16); BLOOD UREA NITROGEN 19 MG/DL (7-18); BUN/CREATININE RATIO 17.6 (5.4-32.0); CALCIUM 8.8 MG/DL (8.5-10.1); CHLORIDE 106 MMOL/L (99-107); CREATININE 1.08 MG/DL (0.60-1.10); GLUCOSE 181 MG/DL (70-104); POTASSIUM 4.7 MMOL/L (3.5-5.1); SODIUM 138 MMOL/L (135-145); TOTAL CARBON DIOXIDE 23.5 MMOL/L (24-32); eGFR 65 ML/MIN
--- NOTE | 2018-09-18 07:23 | NUR ---
Message to Dr. Garry Cheatham V Addendum: 09/18/18 at 0723 by Janie Serna RN Mr. Herzog in RM#[id number] PCU - Critical lab, Troponin 15.35. Still complains of chest pressure 6/10. 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 Thanks, Janie EXT #[id number]
[2018-09-18 07:52] LABS: ANISOCYTOSIS 2+; PLATELET ESTIMATE NORMAL
[2018-09-18 07:54] LABS: MICROCYTOSIS 1+; SCHISTOCYTES FEW
[2018-09-18] MEDS ORDERED: carVEDilol 3.125mg tablet PO SCH (08:00)
[2018-09-18] MEDS ORDERED: non-formulary drug (Ubidecarenone (Coq-10) 300 MG) PO SCH (08:00)
[2018-09-18] MEDS ORDERED: aspirin 81mg tablet.DR PO SCH ×2 (08:00)
[2018-09-18] MEDS ORDERED: nitroGLYCERIN 0.4mg SUBLingual tab SL ONE (08:38)
[2018-09-18] MEDS: vitamin B comp w/Vit. C tab 1 TAB TABLET PO SCH (08:41)
[2018-09-18] MEDS: cholecalciferol (vitamin D) 400 unit tablet PO SCH (08:41)
[2018-09-18] MEDS: pantoprazole 40mg Tablet.DR PO SCH (08:42)
[2018-09-18] MEDS: furosemide 20MG tablet PO SCH (08:42)
[2018-09-18] MEDS: carVEDilol 3.125mg tablet PO SCH ×2 (08:43→20:00)
[2018-09-18] MEDS: nitroGLYCERIN 0.4mg SUBLingual tab SL PRN (09:24)
[2018-09-18 09:30] LABS: CHOL/HDL RATIO 2.8 (0.00-4.99); CHOLESTEROL 111 MG/DL (0-200); HDL CHOLESTEROL 39 MG/DL (35-60); LDL CHOLESTEROL 65 MG/DL (50-100); TRIGLYCERIDES 59 MG/DL (20-135)
[2018-09-18] MEDS: Terazosin 1mg capsule PO SCH (09:46)
--- NOTE | 2018-09-18 10:00 | NUR ---
Page to Dr. Castañeda - [id number], Mr. Herzog. FYI after 3 NTG chest pain is down to a 03/09. Janie U EXT [id number]
[2018-09-18] MEDS ORDERED: tirofiban 5mg in NS 100mL 100 ML IV SCH (10:04)
[2018-09-18] MEDS: insulin Lispro (HumaLOG) vial - multi-dose SQ SCH (13:00)
[2018-09-18 16:31] LABS: BASOPHILS # (AUTO) 0.1 X10'3 (0-0.2); EOSINOPHILS # (AUTO) 0.1 X10'3 (0-0.9); EOSINOPHILS % (AUTO) 0.7 % (0-6); HEMATOCRIT 24.5 % (42.0-52.0); HEMOGLOBIN 8.3 g/dl (14.0-17.9); LYMPHOCYTES # (AUTO) 1.2 X10'3 (1.1-4.8); LYMPHOCYTES % (AUTO) 12.1 % (21-51); MEAN CORPUSCULAR HGB CONC 33.8 g/dL (33.0-36.5); MEAN CORPUSCULAR VOLUME 97.6 FL (78-98); MEAN PLATELET VOLUME 7.7 FL (7.4-10.4); MONOCYTES # (AUTO) 0.8 X10'3 (0-0.9); MONOCYTES % (AUTO) 8.4 % (2-12); NEUTROPHILS # (AUTO) 7.7 X10'3 (1.8-7.7); NEUTROPHILS % (AUTO) 77.8 % (42-75); PLATELET COUNT 293 X10'3 (140-440); RED BLOOD COUNT 2.51 X10'6 (4.70-6.10); RED CELL DISTRIBUTION WIDTH 19.3 % (11.5-14.5); WHITE BLOOD COUNT 9.9 X10'3 (4.5-11.0)
[2018-09-18 16:54] LABS: ANISOCYTOSIS 2+; PLATELET ESTIMATE NORMAL
[2018-09-18 16:55] LABS: MICROCYTOSIS 1+
[2018-09-18 16:56] LABS: POLYCHROMASIA FEW; SCHISTOCYTES FEW
[2018-09-18] MEDS ORDERED: fentaNYL/PF 50MCG/1 ML 2ML syringe ONE (18:18)
[2018-09-18] MEDS ORDERED: midazolam 2 mg/2 ml injection ONE (18:18)
[2018-09-18] MEDS ORDERED: LIDOcaine 1% (10mg/ml)w/preservative injection 20ml MDV ONE (18:19)
[2018-09-18] MEDS ORDERED: iohexol 350MG/ML 100ml bottle IV ONE (18:19)
--- NOTE | 2018-09-18 18:30 | NUR ---
Patient was complaining of feeling light headed at this time and he is diaphoretic. He describes the feeling as what he has felt before when having a hypoglycemic episode. His blood sugar was checked at this time and is 199. BP is 118/44, HR 52, O2 93% on room air. He was laid back down in bed and monitored. After a few minutes he said he began feeling a little better.
--- NOTE | 2018-09-18 18:33 | NUR ---
Problems reprioritized. Patient report given, questions answered & plan of care reviewed with SJ Campa.
--- NOTE | 2018-09-18 18:38 | NUR ---
Patient in room PCU 3018. I have received report from Janie GUSTAFSON and had the opportunity to ask questions and assume patient care.
--- NOTE | 2018-09-18 18:57 | NUR ---
Patient left for the filling station laborer at this time via wheelchair with consent given to cath nurse.
--- NOTE | 2018-09-18 19:00 | NUR ---
Did not get a chance to cover patient with insulin before he was picked up and taken to the cardiac cath lab radiology technologist. However he has been NPO after lunch so did not get any dinner. Will check BG when he returns from cardiac cath lab radiology technologist.
--- NOTE | 2018-09-18 19:51 | NUR ---
Received report from the laborer tan house. Patient is done with procedure and will be coming back up to the floor shortly. Heparin and Aggrastat to be off now and NS to run for 4 hours. No stents were placed and patient will be managed medically. Perclose was used to right groin and patient to lie flat for two hours.
--- NOTE | 2018-09-18 20:00 | NUR ---
Patient back to the room from the asset availability leader at this time. He is arousable but he is sleepy. Vitals are stable and will continue with post op vitals. and daughter are at bedside. Patient understands the need to lay flat for the next two hours. Right groin looks good with no bleeding or bruising and gauze with Tegaderm in place, CDI. Will continue to monitor.
[2018-09-18] MEDS: lisinopril 20mg tablet PO SCH (20:36)
[2018-09-18] MEDS: atorvastatin 20mg tablet PO SCH (20:37)
[2018-09-18] MEDS: insulin glargine (Lantus) pen - multi-dose SQ SCH (20:53)
[2018-09-18] MEDS ORDERED: OXAZEpam 15mg capsule PO PRN (21:35)
--- NOTE | 2018-09-18 22:00 | NUR ---
Patient's groin site still looks good with no bleeding of bruising and dressing CDI. He has been flat for the two hours now so was sat up with assistance and tolerated well. He also voided in the urinal. Will continue to monitor.
[2018-09-19] VITALS (32 sets, daily range): BP systolic 93–132; BP diastolic 37–60
--- NOTE | 2018-09-19 00:22 | NUR ---
PAGER ID: [phone] MESSAGE: Patient Gurdeep Herzog Rm. [id number] Pt just had BM that was black stool & also some eliezer red blood was noted. He just came off of a Heparin gtt and Aggrastat gtt today. Last H/H was 8.3, 24.5. Do you want to repeat labs? Katheryn GUSTAFSON ext. [phone]
--- NOTE | 2018-09-19 00:25 | NUR ---
Dr. Armendariz responded and ordered to draw a Hemogram now.
[2018-09-19 01:07] LABS: MEAN CORPUSCULAR HEMOGLOBIN 32.6 PG (27.0-31.0); MEAN CORPUSCULAR HGB CONC 33.1 g/dL (33.0-36.5); MEAN CORPUSCULAR VOLUME 98.7 FL (78-98); MEAN PLATELET VOLUME 7.6 FL (7.4-10.4); PLATELET COUNT 254 X10'3 (140-440); RED CELL DISTRIBUTION WIDTH 18.8 % (11.5-14.5)
[2018-09-19 01:11] LABS: HEMOGLOBIN 6.8 g/dl (14.0-17.9)
[2018-09-19 01:12] LABS: HEMATOCRIT 20.7 % (42.0-52.0)
[2018-09-19 01:16] LABS: ALBUMIN 2.7 G/DL (3.4-5.0); ANION GAP 8 (8-16); BLOOD UREA NITROGEN 30 MG/DL (7-18); BUN/CREATININE RATIO 28.3 (5.4-32.0); CALCIUM 8.1 MG/DL (8.5-10.1); CHLORIDE 104 MMOL/L (99-107); CREATININE 1.06 MG/DL (0.60-1.10); GLUCOSE 231 MG/DL (70-104); POTASSIUM 4.8 MMOL/L (3.5-5.1); SODIUM 134 MMOL/L (135-145); TOTAL CARBON DIOXIDE 22.1 MMOL/L (24-32); eGFR 66 ML/MIN
--- NOTE | 2018-09-19 01:31 | NUR ---
PAGER ID: [phone] MESSAGE: [id number] Gurdeep Herzog. Hemoglobin is 6.8, Hematocrit 20.7 Karina GUSTAFSON [phone]
--- NOTE | 2018-09-19 01:31 | NUR ---
Jake notified about Hbg=6.8 and Hct=20.7. Dr. Armendariz said that he will be up to the floor to go over the consent for blood transfusion with the patient.
[2018-09-19] MEDS: nitroGLYCERIN 0.4mg SUBLingual tab SL PRN ×4 (03:16→13:33)
--- NOTE | 2018-09-19 06:00 | NUR ---
Patient in room PCU 3018. I have received report from SJ Campa and had the opportunity to ask questions and assume patient care.
--- NOTE | 2018-09-19 06:06 | NUR ---
PAGER ID: [phone] MESSAGE: Patient Gurdeep Herzog Rm [id number] Patient has had a couple of pauses, the longest one being 3.15 seconds. Apparently he had done this the previous night as well. Katheryn GUSTAFSON ext. [phone]
--- NOTE | 2018-09-19 06:23 | NUR ---
Paged Dr. Armendariz about patient having some pauses, the longest being 3.15 seconds. He recommended to hold the Coreg but also consult with Aria Henriquez. Spoke with Aria Henriquez and she also ordered to discontinue Coreg.
--- NOTE | 2018-09-19 06:27 | NUR ---
Problems reprioritized. Patient report given, questions answered & plan of care reviewed with Janie Hernandez.
[2018-09-19 07:13] LABS: BASOPHILS # (AUTO) 0.1 X10'3 (0-0.2); BASOPHILS % (AUTO) 0.9 % (0-1); EOSINOPHILS % (AUTO) 0 % (0-6); HEMATOCRIT 23.2 % (42.0-52.0); HEMOGLOBIN 7.6 g/dl (14.0-17.9); LYMPHOCYTES # (AUTO) 1.3 X10'3 (1.1-4.8); LYMPHOCYTES % (AUTO) 11.1 % (21-51); MEAN CORPUSCULAR HEMOGLOBIN 31.7 PG (27.0-31.0); MEAN CORPUSCULAR HGB CONC 32.9 g/dL (33.0-36.5); MEAN CORPUSCULAR VOLUME 96.4 FL (78-98); MEAN PLATELET VOLUME 7.8 FL (7.4-10.4); MONOCYTES # (AUTO) 1.2 X10'3 (0-0.9); MONOCYTES % (AUTO) 10.2 % (2-12); NEUTROPHILS # (AUTO) 9.3 X10'3 (1.8-7.7); NEUTROPHILS % (AUTO) 77.8 % (42-75); PLATELET COUNT 241 X10'3 (140-440); RED BLOOD COUNT 2.41 X10'6 (4.70-6.10); RED CELL DISTRIBUTION WIDTH 18.9 % (11.5-14.5); WHITE BLOOD COUNT 11.9 X10'3 (4.5-11.0)
[2018-09-19] MEDS: Terazosin 1mg capsule PO SCH (07:55)
[2018-09-19] MEDS: cholecalciferol (vitamin D) 400 unit tablet PO SCH (07:55)
[2018-09-19] MEDS: furosemide 20MG tablet PO SCH (07:55)
[2018-09-19] MEDS: vitamin B comp w/Vit. C tab 1 TAB TABLET PO SCH (07:56)
[2018-09-19] MEDS: isosorbide mononitrate 30mg tab.SR.24H PO SCH (07:56)
[2018-09-19] MEDS: pantoprazole 40mg Tablet.DR PO SCH (07:56)
[2018-09-19] MEDS: insulin Lispro (HumaLOG) vial - multi-dose SQ SCH ×2 (08:09→21:35)
[2018-09-19 09:14] LABS: ANISOCYTOSIS 2+; PLATELET ESTIMATE NORMAL
[2018-09-19 09:15] LABS: BURR CELLS FEW; POLYCHROMASIA FEW; SCHISTOCYTES FEW
--- NOTE | 2018-09-19 10:28 | NUR ---
Message to Dr. Castañeda - Mr Herzog Room 2018A - Had a 10 second pause on his monitor strip. He said he was sleeping and sudden head pain awoke him during this episode. Thanks, Janie Anderson [phone]
--- NOTE | 2018-09-19 10:35 | NUR ---
I called back to PCU regarding a stat call to see patient but stroke alert was not called. I informed staff that I would be in as soon as I could since I was coming from home. Patient was having cardiac issues with pauses. He also had unequal pupils but was talking to staff and he informed staff that this was usual per him I believe.
--- NOTE | 2018-09-19 10:45 | NUR ---
Patient had another long pause - 8 seconds. VS 67, 16, 97% 114/60. Occurs when patient dozes off and he feels a profound dizziness which wakes him up. Stroke alert called by charge nurse for that and dilated left pupil. Patient taken down to CT.
--- NOTE | 2018-09-19 11:05 | NUR ---
I was now paged to PCU with a stroke alert at 10:[address] to the hospital when it was paged to me. Patient was in CT scan when I arrived to see him and he is being transferred to ICU from CT scanner.
--- NOTE | 2018-09-19 11:15 | NUR ---
Patient taken to room 2009, ICU and report given to SJ Farrell.
--- NOTE | 2018-09-19 11:15 | NUR ---
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 Addendum: 09/19/18 at 1144 by Janki Constantino RN Amended: Links added.
--- NOTE | 2018-09-19 11:20 | NUR ---
Report received from Janie GUSTAFSON PCU. Patient has been have significant pauses in heart rhythm. Longest recorded was 10 seconds. Patient did receive breakfast this morning. Patient transferred with belongings.
--- NOTE | 2018-09-19 11:25 | NUR ---
Neuro assessment has been done along with NIHSS and I do not see any signs of a stroke and CT scan negative for stroke per report. I talked with the patient and he verified that he has no change in his vision that this is a defect and that he felt dizzy when he had the heart pauses but otherwise had felt ok. I talked with the pt's nurse and will relay to Dr. Pelaez that if patient needs to see a neurologist that Dr. Rios is employee relations assistant today to evaluate neuro issues. I called Donna the primary care coordinator to verify that I did not need to do a SOC neuro consult at this time.
--- NOTE | 2018-09-19 12:10 | NUR ---
Dr. Pelaez telephone. Orders received to check BMP, Magnesium and Phosphorus levels. Order received to start DOPAmine at 5. MD made aware that patient only has PIVs, ordered to start anyways. Also ordered 1 unit of PRBC to be given if Hemoglobin is less than 10, and 2 units of PRBC to be given if Hemoglobin is less than 8 in hemogram following current blood administration.
[2018-09-19] MEDS: DOPamine 400mg/D5W 250ml 250 ML IV SCH (12:11)
--- NOTE | 2018-09-19 12:25 | NUR ---
Per pharmacy, Ok to run dopamine through PIV until a line can be placed. Pharmacy spoke to Dr. Pelaez, he is aware that the patient will need a line for dopamine infusion eventually.
--- NOTE | 2018-09-19 12:34 | NUR ---
Called Aria Henriquez re: cardiac pauses. Aria said that if the pauses continue after starting IV dopamine to call Dr. Childers directly.
[2018-09-19] MEDS: ESOMEPRAZOLE 40 MG VIAL IV SCH ×2 (12:43→20:00)
[2018-09-19 13:08] LABS: ALBUMIN 2.7 G/DL (3.4-5.0); ANION GAP 9 (8-16); BLOOD UREA NITROGEN 35 MG/DL (7-18); BUN/CREATININE RATIO 29.4 (5.4-32.0); CALCIUM 8.2 MG/DL (8.5-10.1); CHLORIDE 107 MMOL/L (99-107); CREATININE 1.19 MG/DL (0.60-1.10); GLUCOSE 197 MG/DL (70-104); MAGNESIUM 1.9 MG/DL (1.5-2.4); PHOSPHORUS 2.3 MG/DL (2.3-4.5); POTASSIUM 4.3 MMOL/L (3.5-5.1); SODIUM 137 MMOL/L (135-145); TOTAL CARBON DIOXIDE 21.5 MMOL/L (24-32); eGFR 58 ML/MIN
--- NOTE | 2018-09-19 13:38 | NUR ---
Spoke to Dr. Pelaez. stated that pt will be on dobutamine short term and does not need any line other than a PIV. Dobutamine is running through a 20g in (L) forearm.
[2018-09-19] MEDS: ondansetron/PF 4mg/2ml inj IV PRN (13:54)
--- NOTE | 2018-09-19 14:30 | NUR ---
Dr. Pelaez rounded on patient. Ordered consent for central line placement. Ordered Protonix 10 mg IV once, protonix drip ordered at 10mg/hr, nitro drip ordered per protocol, and dopamine ordered to be brought down to 2 and titrated from there.
[2018-09-19] MEDS ORDERED: nitroGLYCERIN-Tridil 50MG/D5W 250 ML IV PRN (14:40)
[2018-09-19] MEDS ORDERED: pantoprazole 40 MG vial IV ONE (14:40)
[2018-09-19] MEDS: pantoprazole 40MG/NS 100ML BAG 100 ML IV SCH ×3 (15:00→23:01)
[2018-09-19 15:32] LABS: HEMATOCRIT 28.8 % (42.0-52.0); HEMOGLOBIN 9.7 g/dl (14.0-17.9); MEAN CORPUSCULAR HEMOGLOBIN 31.3 PG (27.0-31.0); MEAN CORPUSCULAR HGB CONC 33.5 g/dL (33.0-36.5); MEAN CORPUSCULAR VOLUME 93.4 FL (78-98); MEAN PLATELET VOLUME 7.8 FL (7.4-10.4); PLATELET COUNT 222 X10'3 (140-440); RED BLOOD COUNT 3.09 X10'6 (4.70-6.10); RED CELL DISTRIBUTION WIDTH 17.7 % (11.5-14.5); WHITE BLOOD COUNT 13.6 X10'3 (4.5-11.0)
[2018-09-19] MEDS ORDERED: fentaNYL/PF 50MCG/1 ML 2ML syringe ONE (17:02)
[2018-09-19] MEDS ORDERED: midazolam 2 mg/2 ml injection ONE (17:02)
[2018-09-19] MEDS ORDERED: ceFAZolin 1000mg inj ONE (17:03)
[2018-09-19] MEDS ORDERED: LIDOcaine 1% (10mg/ml)w/preservative injection 20ml MDV ONE ×2 (17:03→18:20)
--- NOTE | 2018-09-19 17:45 | NUR ---
Late note, the patient has problems opening his left eye and per him this is normal for him and his left eye is the one with decreased vision and has a defect so it is weaker in strength then the right one.
--- NOTE | 2018-09-19 17:56 | NUR ---
Patient left at 1755 to go to ear mold laboratory technician for pacemaker placement.
--- NOTE | 2018-09-19 18:23 | NUR ---
Problems reprioritized. Patient report given, questions answered & plan of care reviewed with Jelena GUSTAFSON.
--- NOTE | 2018-09-19 18:30 | NUR ---
Patient in semiconductor lab technician will be coming to 2008. I have received report from SJ Farrell and SJ Go and had the opportunity to ask questions. Patient is currently in semiconductor lab technician for pacemaker placement.
--- NOTE | 2018-09-19 19:10 | NUR ---
Patient from micro lab analyst to room CICU 2008. I have received report from SJ Romero and had the opportunity to ask questions and assume patient care. Patient is drowsey but responds to verbal. no compliant of pain. Patient with sling to left arm in place. Dressing to left anterior chest clean, dry intact. Radial pulses intact. Patient with quad lumen central line to right groin. With Dopamine, Nitroglycerin and Protonix infusing.
[2018-09-19 19:55] LABS: HEMATOCRIT 27.8 % (42.0-52.0); HEMOGLOBIN 9.3 g/dl (14.0-17.9); MEAN CORPUSCULAR HEMOGLOBIN 31.3 PG (27.0-31.0); MEAN CORPUSCULAR HGB CONC 33.4 g/dL (33.0-36.5); MEAN CORPUSCULAR VOLUME 93.7 FL (78-98); MEAN PLATELET VOLUME 7.8 FL (7.4-10.4); PLATELET COUNT 209 X10'3 (140-440); RED BLOOD COUNT 2.96 X10'6 (4.70-6.10); RED CELL DISTRIBUTION WIDTH 18.3 % (11.5-14.5); WHITE BLOOD COUNT 13.3 X10'3 (4.5-11.0)
[2018-09-19] MEDS: lisinopril 20mg tablet PO SCH (21:27)
[2018-09-19] MEDS: atorvastatin 20mg tablet PO SCH (21:28)
[2018-09-19] MEDS: insulin glargine (Lantus) pen - multi-dose SQ SCH (21:37)
[2018-09-20] VITALS (28 sets, daily range): BP systolic 104–128; BP diastolic 42–73
[2018-09-20] MEDS: DOPamine 400mg/D5W 250ml 250 ML IV SCH ×2 (01:45→09:40)
[2018-09-20] MEDS: ceFAZolin 1GM/D5W- ADD-VANTAGE 50 ML IV SCH ×2 (02:45→09:39)
[2018-09-20 02:54] LABS: BASOPHILS # (AUTO) 0.1 X10'3 (0-0.2); BASOPHILS % (AUTO) 0.5 % (0-1); EOSINOPHILS # (AUTO) 0.1 X10'3 (0-0.9); EOSINOPHILS % (AUTO) 0.8 % (0-6); HEMATOCRIT 29.3 % (42.0-52.0); HEMOGLOBIN 9.9 g/dl (14.0-17.9); LYMPHOCYTES # (AUTO) 1.3 X10'3 (1.1-4.8); MEAN CORPUSCULAR HEMOGLOBIN 31.3 PG (27.0-31.0); MEAN CORPUSCULAR HGB CONC 33.7 g/dL (33.0-36.5); MEAN PLATELET VOLUME 7.5 FL (7.4-10.4); MONOCYTES # (AUTO) 1.6 X10'3 (0-0.9); MONOCYTES % (AUTO) 11.9 % (2-12); NEUTROPHILS # (AUTO) 10.2 X10'3 (1.8-7.7); NEUTROPHILS % (AUTO) 76.8 % (42-75); PLATELET COUNT 196 X10'3 (140-440); RED BLOOD COUNT 3.15 X10'6 (4.70-6.10); RED CELL DISTRIBUTION WIDTH 17.8 % (11.5-14.5); WHITE BLOOD COUNT 13.3 X10'3 (4.5-11.0)
[2018-09-20] MEDS: insulin Lispro (HumaLOG) vial - multi-dose SQ SCH ×2 (02:58→20:54)
[2018-09-20 03:04] LABS: ALBUMIN 2.8 G/DL (3.4-5.0); ANION GAP 6 (8-16); BLOOD UREA NITROGEN 28 MG/DL (7-18); BUN/CREATININE RATIO 25.7 (5.4-32.0); CALCIUM 8.1 MG/DL (8.5-10.1); CHLORIDE 106 MMOL/L (99-107); CREATININE 1.09 MG/DL (0.60-1.10); GLUCOSE 166 MG/DL (70-104); POTASSIUM 4.1 MMOL/L (3.5-5.1); SODIUM 136 MMOL/L (135-145); TOTAL CARBON DIOXIDE 23.7 MMOL/L (24-32); eGFR 64 ML/MIN
--- NOTE | 2018-09-20 03:15 | NUR ---
Phone call to Earnest Franks NP re: Hemoglobin 9.9 with Misc. nursing order from Dr. Pelaez to transfuse if Hemoglobin less than 10. Patient has hemogram every 6 hours. Per GLORIA Franks okay to wait until next hemogram and not transfuse now.
[2018-09-20] MEDS: pantoprazole 40MG/NS 100ML BAG 100 ML IV SCH ×4 (03:28→20:28)
--- NOTE | 2018-09-20 06:26 | NUR ---
Problems reprioritized. Patient report given, questions answered & plan of care reviewed with SJ Calderon.
[2018-09-20] MEDS: Terazosin 1mg capsule PO SCH (07:29)
[2018-09-20] MEDS: furosemide 20MG tablet PO SCH (07:29)
[2018-09-20] MEDS: isosorbide mononitrate 30mg tab.SR.24H PO SCH (07:29)
[2018-09-20] MEDS: vitamin B comp w/Vit. C tab 1 TAB TABLET PO SCH (07:29)
[2018-09-20] MEDS: cholecalciferol (vitamin D) 400 unit tablet PO SCH (07:29)
[2018-09-20 09:06] LABS: HEMATOCRIT 28.6 % (42.0-52.0); HEMOGLOBIN 9.6 g/dl (14.0-17.9); MEAN CORPUSCULAR HEMOGLOBIN 31.3 PG (27.0-31.0); MEAN CORPUSCULAR HGB CONC 33.6 g/dL (33.0-36.5); MEAN CORPUSCULAR VOLUME 93.1 FL (78-98); PLATELET COUNT 186 X10'3 (140-440); RED BLOOD COUNT 3.07 X10'6 (4.70-6.10); RED CELL DISTRIBUTION WIDTH 18.5 % (11.5-14.5); WHITE BLOOD COUNT 12.7 X10'3 (4.5-11.0)
--- NOTE | 2018-09-20 09:29 | NUR ---
pt. hx of cronic GI bleed, antithromb. therapy to be discussed with provider
[2018-09-20] MEDS: morphine 2 MG/ML inj. syringe IV PRN ×3 (12:20→20:29)
[2018-09-20] MEDS: lactose-reduced food (Ensure High Protein) 237ml bottle PO SCH ×3 (16:02→18:00)
[2018-09-20 16:07] LABS: HEMATOCRIT 32.5 % (42.0-52.0); HEMOGLOBIN 10.8 g/dl (14.0-17.9); MEAN CORPUSCULAR HEMOGLOBIN 31.3 PG (27.0-31.0); MEAN CORPUSCULAR HGB CONC 33.3 g/dL (33.0-36.5); MEAN CORPUSCULAR VOLUME 93.7 FL (78-98); MEAN PLATELET VOLUME 7.6 FL (7.4-10.4); PLATELET COUNT 197 X10'3 (140-440); RED BLOOD COUNT 3.46 X10'6 (4.70-6.10); RED CELL DISTRIBUTION WIDTH 18.2 % (11.5-14.5); WHITE BLOOD COUNT 13.9 X10'3 (4.5-11.0)
--- NOTE | 2018-09-20 17:58 | NUR ---
Pt. tolerating 1mcg of dopamine yet when titrated off, MAP drops below 60. Providers aware. Pantoprazole drip and nitroglycerin drip continued. Morphine PRN given x2 for chest pain. Addendum: 09/20/18 at 1816 by Marlene Tran RN 7 units of insulin given at 1400 per pt. glucose of 171, level 5. Pt. family gave pt. fruit drink for poor appetite
[2018-09-20] MEDS: atorvastatin 20mg tablet PO SCH (20:28)
[2018-09-20] MEDS: lisinopril 20mg tablet PO SCH (20:28)
[2018-09-20] MEDS: ondansetron/PF 4mg/2ml inj IV PRN (20:29)
[2018-09-20] MEDS: insulin glargine (Lantus) pen - multi-dose SQ SCH (20:46)
[2018-09-20 21:17] LABS: HEMOGLOBIN 10.8 g/dl (14.0-17.9); MEAN CORPUSCULAR HEMOGLOBIN 31.5 PG (27.0-31.0); MEAN CORPUSCULAR HGB CONC 33.7 g/dL (33.0-36.5); MEAN CORPUSCULAR VOLUME 93.5 FL (78-98); MEAN PLATELET VOLUME 8.1 FL (7.4-10.4); PLATELET COUNT 198 X10'3 (140-440); RED BLOOD COUNT 3.42 X10'6 (4.70-6.10); RED CELL DISTRIBUTION WIDTH 18.1 % (11.5-14.5); WHITE BLOOD COUNT 14.1 X10'3 (4.5-11.0)
[2018-09-21] VITALS (24 sets, daily range): BP systolic 100–138; BP diastolic 42–59
[2018-09-21] MEDS: morphine 2 MG/ML inj. syringe IV PRN ×2 (00:21→03:32)
[2018-09-21] MEDS: pantoprazole 40MG/NS 100ML BAG 100 ML IV SCH ×6 (00:43→20:20)
[2018-09-21 03:37] LABS: BASOPHILS # (AUTO) 0.1 X10'3 (0-0.2); EOSINOPHILS # (AUTO) 0.1 X10'3 (0-0.9); EOSINOPHILS % (AUTO) 0.6 % (0-6); HEMOGLOBIN 10.6 g/dl (14.0-17.9); LYMPHOCYTES # (AUTO) 1.5 X10'3 (1.1-4.8); LYMPHOCYTES % (AUTO) 10.1 % (21-51); MEAN CORPUSCULAR HEMOGLOBIN 31.1 PG (27.0-31.0); MEAN CORPUSCULAR HGB CONC 33.2 g/dL (33.0-36.5); MEAN CORPUSCULAR VOLUME 93.8 FL (78-98); MEAN PLATELET VOLUME 7.9 FL (7.4-10.4); MONOCYTES # (AUTO) 1.7 X10'3 (0-0.9); MONOCYTES % (AUTO) 11.8 % (2-12); NEUTROPHILS % (AUTO) 76.5 % (42-75); PLATELET COUNT 200 X10'3 (140-440); RED BLOOD COUNT 3.41 X10'6 (4.70-6.10); RED CELL DISTRIBUTION WIDTH 17.8 % (11.5-14.5); WHITE BLOOD COUNT 14.4 X10'3 (4.5-11.0)
[2018-09-21 03:45] LABS: ALBUMIN 2.6 G/DL (3.4-5.0); ANION GAP 6 (8-16); BLOOD UREA NITROGEN 36 MG/DL (7-18); BUN/CREATININE RATIO 28.1 (5.4-32.0); CALCIUM 8.1 MG/DL (8.5-10.1); CHLORIDE 104 MMOL/L (99-107); CREATININE 1.28 MG/DL (0.60-1.10); GLUCOSE 119 MG/DL (70-104); POTASSIUM 4.2 MMOL/L (3.5-5.1); SODIUM 134 MMOL/L (135-145); TOTAL CARBON DIOXIDE 24.1 MMOL/L (24-32); eGFR 53 ML/MIN
[2018-09-21] MEDS: DOPamine 400mg/D5W 250ml 250 ML IV SCH (04:07)
--- NOTE | 2018-09-21 06:29 | NUR ---
Patient in room CICU 2008. I have received report from SJ Horn and had the opportunity to ask questions and assume patient care.
[2018-09-21] MEDS: furosemide 20MG tablet PO SCH (07:11)
[2018-09-21] MEDS: vitamin B comp w/Vit. C tab 1 TAB TABLET PO SCH (07:11)
[2018-09-21] MEDS: cholecalciferol (vitamin D) 400 unit tablet PO SCH (07:11)
[2018-09-21] MEDS: isosorbide mononitrate 30mg tab.SR.24H PO SCH ×2 (07:22→11:48)
[2018-09-21] MEDS: Terazosin 1mg capsule PO SCH (07:22)
[2018-09-21] MEDS: insulin Lispro (HumaLOG) vial - multi-dose SQ SCH ×3 (08:32→20:30)
[2018-09-21] MEDS: lactose-reduced food (Ensure High Protein) 237ml bottle PO SCH ×6 (08:33→18:26)
[2018-09-21 09:17] LABS: HEMOGLOBIN 10.3 g/dl (14.0-17.9); MEAN CORPUSCULAR HEMOGLOBIN 31.2 PG (27.0-31.0); MEAN CORPUSCULAR HGB CONC 33.4 g/dL (33.0-36.5); MEAN CORPUSCULAR VOLUME 93.5 FL (78-98); MEAN PLATELET VOLUME 7.5 FL (7.4-10.4); PLATELET COUNT 191 X10'3 (140-440); RED BLOOD COUNT 3.32 X10'6 (4.70-6.10); WHITE BLOOD COUNT 13.2 X10'3 (4.5-11.0)
--- NOTE | 2018-09-21 11:16 | NUR ---
Initial: Pt admit w/ NSTEMI and GIB hx CHF EF 35%. S/p pacemaker placement 09/19 per RN. Pending life vest. LBM 09/18 w/ miralax to start today per MD. Colonoscopy postponed r/t current cardiac status per RN. PO remains low this admit 0-25% heart healthy meals and refused ensure high protein last night. Pt did have few bites of oatmeal w/ ensure this AM per RN. Receiving B/C complex vitamins on lasix. No edema/wounds noted. Will continue to monitor for additional protein needs. Rec: 1. IF PO remains low; advance to regular diet per MD 2. ensure high protein TIDWM 3. routine bowel care 4. weekly wts Addendum: 09/21/18 at [address] Amended: Links added.
[2018-09-21] MEDS ORDERED: morphine 2 MG/ML inj. syringe IV PRN (11:30)
--- NOTE | 2018-09-21 12:00 | NUR ---
Per Dr. Pelaez, okay to give Imdur as long as SBP greater than 100 now that dopamine is turned off. Attempt to wean nitro as tolerated after Imdur administered
--- NOTE | 2018-09-21 18:26 | NUR ---
Problems reprioritized. Patient report given, questions answered & plan of care reviewed with SJ Horn.
[2018-09-21 19:38] LABS: HEMATOCRIT 34.5 % (42.0-52.0); HEMOGLOBIN 11.3 g/dl (14.0-17.9); MEAN CORPUSCULAR HEMOGLOBIN 31.4 PG (27.0-31.0); MEAN CORPUSCULAR HGB CONC 32.9 g/dL (33.0-36.5); MEAN CORPUSCULAR VOLUME 95.7 FL (78-98); PLATELET COUNT 192 X10'3 (140-440); RED CELL DISTRIBUTION WIDTH 18.7 % (11.5-14.5); WHITE BLOOD COUNT 13.6 X10'3 (4.5-11.0)
[2018-09-21] MEDS: atorvastatin 20mg tablet PO SCH (20:23)
[2018-09-21] MEDS: lisinopril 20mg tablet PO SCH (20:23)
[2018-09-21] MEDS: polyethylene glycol 3350 17gm powd pack PO SCH (20:23)
[2018-09-21] MEDS: insulin glargine (Lantus) pen - multi-dose SQ SCH (20:32)
[2018-09-22] VITALS (22 sets, daily range): BP systolic 98–136; BP diastolic 37–75
[2018-09-22] MEDS: pantoprazole 40MG/NS 100ML BAG 100 ML IV SCH ×2 (01:00→05:00)
[2018-09-22] MEDS ORDERED: pantoprazole 40MG/NS 100ML BAG 100 ML IV SCH ×2 (05:42→05:43)
[2018-09-22 06:20] LABS: ABSOLUTE RETICS # 111700 /CUMM (23000-93000); BASOPHILS # (AUTO) 0.1 X10'3 (0-0.2); BASOPHILS % (AUTO) 0.5 % (0-1); EOSINOPHILS # (AUTO) 0.2 X10'3 (0-0.9); EOSINOPHILS % (AUTO) 1.3 % (0-6); HEMATOCRIT 30.9 % (42.0-52.0); HEMOGLOBIN 10.3 g/dl (14.0-17.9); LYMPHOCYTES # (AUTO) 1.4 X10'3 (1.1-4.8); LYMPHOCYTES % (AUTO) 11.1 % (21-51); MEAN CORPUSCULAR HEMOGLOBIN 31.3 PG (27.0-31.0); MEAN CORPUSCULAR HGB CONC 33.3 g/dL (33.0-36.5); MEAN CORPUSCULAR VOLUME 93.9 FL (78-98); MEAN PLATELET VOLUME 8.3 FL (7.4-10.4); MONOCYTES # (AUTO) 1.5 X10'3 (0-0.9); MONOCYTES % (AUTO) 11.8 % (2-12); NEUTROPHILS # (AUTO) 9.6 X10'3 (1.8-7.7); NEUTROPHILS % (AUTO) 75.3 % (42-75); PLATELET COUNT 211 X10'3 (140-440); RED BLOOD COUNT 3.29 X10'6 (4.70-6.10); RED CELL DISTRIBUTION WIDTH 17.2 % (11.5-14.5); RETICULOCYTE % (AUTO) 3.4 % (0.5-1.5); WHITE BLOOD COUNT 12.8 X10'3 (4.5-11.0)
[2018-09-22 06:28] LABS: ALBUMIN 2.4 G/DL (3.4-5.0); ANION GAP 10 (8-16); BLOOD UREA NITROGEN 51 MG/DL (7-18); BUN/CREATININE RATIO 34.2 (5.4-32.0); CALCIUM 8.1 MG/DL (8.5-10.1); CHLORIDE 105 MMOL/L (99-107); CREATININE 1.49 MG/DL (0.60-1.10); GLUCOSE 101 MG/DL (70-104); POTASSIUM 3.9 MMOL/L (3.5-5.1); SODIUM 136 MMOL/L (135-145); TOTAL CARBON DIOXIDE 21.1 MMOL/L (24-32); eGFR 45 ML/MIN
--- NOTE | 2018-09-22 06:50 | NUR ---
Patient in room CICU 2008. I have received report from Justina GUSTAFSON and had the opportunity to ask questions and assume patient care. Patient laying in bed with eyes closed, vital signs stable will continue to monitor
[2018-09-22 06:58] LABS: % IRON SATURATION 5 % (11-46); IRON 11 UG/DL (53-167); TOTAL IRON BINDING CAPACITY 221 UG/DL (259-388)
[2018-09-22] MEDS: furosemide 20MG tablet PO SCH (07:56)
[2018-09-22] MEDS: Terazosin 1mg capsule PO SCH (07:56)
[2018-09-22] MEDS: isosorbide mononitrate 30mg tab.SR.24H PO SCH (07:56)
[2018-09-22] MEDS: cholecalciferol (vitamin D) 400 unit tablet PO SCH (07:56)
[2018-09-22] MEDS: vitamin B comp w/Vit. C tab 1 TAB TABLET PO SCH (07:56)
[2018-09-22] MEDS: lactose-reduced food (Ensure High Protein) 237ml bottle PO SCH ×5 (08:00→18:00)
[2018-09-22] MEDS ORDERED: iron sucrose complex injection 200 MG in normal saline 100ml IV soln 100 ML IV SCH (08:00)
[2018-09-22] MEDS: furosemide 40mg tablet PO SCH (08:36)
[2018-09-22 09:35] LABS: HEMATOCRIT 28.7 % (42.0-52.0); HEMOGLOBIN 9.8 g/dl (14.0-17.9); MEAN CORPUSCULAR HGB CONC 34.1 g/dL (33.0-36.5); MEAN CORPUSCULAR VOLUME 93.7 FL (78-98); MEAN PLATELET VOLUME 7.7 FL (7.4-10.4); PLATELET COUNT 191 X10'3 (140-440); RED BLOOD COUNT 3.07 X10'6 (4.70-6.10); RED CELL DISTRIBUTION WIDTH 17.5 % (11.5-14.5); WHITE BLOOD COUNT 12.6 X10'3 (4.5-11.0)
[2018-09-22] MEDS: sodium ferric gluc complex inj 125 MG in normal saline 100ml IV soln 100 ML IV SCH (10:05)
[2018-09-22] MEDS: insulin Lispro (HumaLOG) vial - multi-dose SQ SCH ×3 (10:09→21:55)
--- NOTE | 2018-09-22 14:20 | NUR ---
Per Patient it is ok to give information to Grand daughter Wilma and Daughter Susana Nilesh
[2018-09-22 16:24] LABS: HEMATOCRIT 29.1 % (42.0-52.0); HEMOGLOBIN 9.7 g/dl (14.0-17.9); MEAN CORPUSCULAR HEMOGLOBIN 31.4 PG (27.0-31.0); MEAN CORPUSCULAR HGB CONC 33.2 g/dL (33.0-36.5); MEAN CORPUSCULAR VOLUME 94.7 FL (78-98); MEAN PLATELET VOLUME 7.9 FL (7.4-10.4); PLATELET COUNT 193 X10'3 (140-440); RED BLOOD COUNT 3.07 X10'6 (4.70-6.10); RED CELL DISTRIBUTION WIDTH 17.6 % (11.5-14.5); WHITE BLOOD COUNT 11.9 X10'3 (4.5-11.0)
[2018-09-22] MEDS: lisinopril 20mg tablet PO SCH (20:13)
[2018-09-22] MEDS: pantoprazole 40mg Tablet.DR PO SCH (20:13)
[2018-09-22] MEDS: atorvastatin 20mg tablet PO SCH (20:14)
[2018-09-22] MEDS: carVEDilol 3.125mg tablet PO SCH (20:14)
[2018-09-22] MEDS: polyethylene glycol 3350 17gm powd pack PO SCH (20:14)
[2018-09-22] MEDS: insulin glargine (Lantus) pen - multi-dose SQ SCH ×2 (20:18→21:55)
--- NOTE | 2018-09-22 21:00 | NUR ---
Patient arrived to room 3013A from the ICU with tele monitor on. All belongings on person. Pt oriented to room, call light, plan of care and all questions answered. Vital signs stable and pacemaker site dressing dry and intact. Will continue to monitor.
[2018-09-22 21:06] LABS: HEMATOCRIT 30.4 % (42.0-52.0); HEMOGLOBIN 10.1 g/dl (14.0-17.9); MEAN CORPUSCULAR HEMOGLOBIN 31.4 PG (27.0-31.0); MEAN CORPUSCULAR HGB CONC 33.1 g/dL (33.0-36.5); MEAN CORPUSCULAR VOLUME 94.6 FL (78-98); MEAN PLATELET VOLUME 7.5 FL (7.4-10.4); PLATELET COUNT 202 X10'3 (140-440); RED BLOOD COUNT 3.21 X10'6 (4.70-6.10); RED CELL DISTRIBUTION WIDTH 17.5 % (11.5-14.5); WHITE BLOOD COUNT 11.9 X10'3 (4.5-11.0)
[2018-09-23] VITALS (7 sets, daily range): BP systolic 118–135; BP diastolic 48–59
--- NOTE | 2018-09-23 06:13 | NUR ---
Problems reprioritized. Patient report given, questions answered & plan of care reviewed with Gilson GUSTAFSON.
[2018-09-23 06:23] LABS: BASOPHILS % (AUTO) 0.5 % (0-1); EOSINOPHILS # (AUTO) 0.2 X10'3 (0-0.9); EOSINOPHILS % (AUTO) 2.1 % (0-6); HEMATOCRIT 28.9 % (42.0-52.0); HEMOGLOBIN 9.8 g/dl (14.0-17.9); LYMPHOCYTES % (AUTO) 10.2 % (21-51); MEAN CORPUSCULAR HEMOGLOBIN 31.8 PG (27.0-31.0); MEAN CORPUSCULAR HGB CONC 34.1 g/dL (33.0-36.5); MEAN CORPUSCULAR VOLUME 93.4 FL (78-98); MEAN PLATELET VOLUME 7.6 FL (7.4-10.4); MONOCYTES # (AUTO) 1.1 X10'3 (0-0.9); MONOCYTES % (AUTO) 11.3 % (2-12); NEUTROPHILS # (AUTO) 7.3 X10'3 (1.8-7.7); NEUTROPHILS % (AUTO) 75.9 % (42-75); PLATELET COUNT 219 X10'3 (140-440); RED BLOOD COUNT 3.09 X10'6 (4.70-6.10); RED CELL DISTRIBUTION WIDTH 17.2 % (11.5-14.5); WHITE BLOOD COUNT 9.6 X10'3 (4.5-11.0)
[2018-09-23 06:31] LABS: ANION GAP 9 (8-16); BLOOD UREA NITROGEN 55 MG/DL (7-18); BUN/CREATININE RATIO 43.3 (5.4-32.0); CALCIUM 8.3 MG/DL (8.5-10.1); CHLORIDE 106 MMOL/L (99-107); CREATININE 1.27 MG/DL (0.60-1.10); GLUCOSE 81 MG/DL (70-104); POTASSIUM 4.2 MMOL/L (3.5-5.1); SODIUM 137 MMOL/L (135-145); TOTAL CARBON DIOXIDE 21.6 MMOL/L (24-32); eGFR 54 ML/MIN
[2018-09-23 06:32] LABS: ALBUMIN 2.2 G/DL (3.4-5.0)
--- NOTE | 2018-09-23 06:37 | NUR ---
Patient in room PCU 3013. I have received report from SJ Montejo and had the opportunity to ask questions and assume patient care.
[2018-09-23] MEDS: lactose-reduced food (Ensure High Protein) 237ml bottle PO SCH ×3 (08:32→18:00)
[2018-09-23] MEDS: vitamin B comp w/Vit. C tab 1 TAB TABLET PO SCH (08:38)
[2018-09-23] MEDS: pantoprazole 40mg Tablet.DR PO SCH ×2 (08:38→20:55)
[2018-09-23] MEDS: isosorbide mononitrate 30mg tab.SR.24H PO SCH (08:38)
[2018-09-23] MEDS: furosemide 40mg tablet PO SCH (08:38)
[2018-09-23] MEDS: carVEDilol 3.125mg tablet PO SCH ×2 (08:38→20:55)
[2018-09-23] MEDS: cholecalciferol (vitamin D) 400 unit tablet PO SCH (08:38)
[2018-09-23] MEDS: Terazosin 1mg capsule PO SCH (08:39)
[2018-09-23] MEDS: insulin Lispro (HumaLOG) vial - multi-dose SQ SCH ×3 (08:47→18:46)
[2018-09-23] MEDS: sodium ferric gluc complex inj 125 MG in normal saline 100ml IV soln 100 ML IV SCH (08:59)
--- NOTE | 2018-09-23 18:02 | NUR ---
Problems reprioritized. Patient report given, questions answered & plan of care reviewed with SJ Montejo.
[2018-09-23 19:15] LABS: HEMATOCRIT 31.2 % (42.0-52.0); HEMOGLOBIN 10.2 g/dl (14.0-17.9); MEAN CORPUSCULAR HEMOGLOBIN 30.7 PG (27.0-31.0); MEAN CORPUSCULAR HGB CONC 32.5 g/dL (33.0-36.5); MEAN CORPUSCULAR VOLUME 94.6 FL (78-98); MEAN PLATELET VOLUME 7.6 FL (7.4-10.4); PLATELET COUNT 232 X10'3 (140-440); RED CELL DISTRIBUTION WIDTH 17.4 % (11.5-14.5); WHITE BLOOD COUNT 12.3 X10'3 (4.5-11.0)
[2018-09-23] MEDS: lisinopril 20mg tablet PO SCH (20:55)
[2018-09-23] MEDS: atorvastatin 20mg tablet PO SCH (20:55)
[2018-09-23] MEDS: cephalexin 500mg capsule PO SCH (20:55)
[2018-09-23] MEDS: polyethylene glycol 3350 17gm powd pack PO SCH (21:00)
[2018-09-23] MEDS ORDERED: insulin glargine (Lantus) pen - multi-dose SQ ONE (21:10)
[2018-09-24 03:00] VITALS: BP 112/52
[2018-09-24 05:44] LABS: ALBUMIN 2.2 G/DL (3.4-5.0); ANION GAP 10 (8-16); BLOOD UREA NITROGEN 60 MG/DL (7-18); BUN/CREATININE RATIO 46.2 (5.4-32.0); CALCIUM 8.4 MG/DL (8.5-10.1); CHLORIDE 105 MMOL/L (99-107); GLUCOSE 130 MG/DL (70-104); POTASSIUM 4.1 MMOL/L (3.5-5.1); SODIUM 136 MMOL/L (135-145); TOTAL CARBON DIOXIDE 21.2 MMOL/L (24-32); eGFR 52 ML/MIN
[2018-09-24 05:46] LABS: BASOPHILS # (AUTO) 0.1 X10'3 (0-0.2); BASOPHILS % (AUTO) 0.7 % (0-1); EOSINOPHILS # (AUTO) 0.1 X10'3 (0-0.9); EOSINOPHILS % (AUTO) 1.5 % (0-6); HEMATOCRIT 28.4 % (42.0-52.0); HEMOGLOBIN 9.7 g/dl (14.0-17.9); LYMPHOCYTES # (AUTO) 1.2 X10'3 (1.1-4.8); LYMPHOCYTES % (AUTO) 12.2 % (21-51); MEAN CORPUSCULAR HEMOGLOBIN 31.9 PG (27.0-31.0); MEAN CORPUSCULAR HGB CONC 34.1 g/dL (33.0-36.5); MEAN CORPUSCULAR VOLUME 93.7 FL (78-98); MEAN PLATELET VOLUME 8.1 FL (7.4-10.4); MONOCYTES # (AUTO) 1.3 X10'3 (0-0.9); MONOCYTES % (AUTO) 13.2 % (2-12); NEUTROPHILS # (AUTO) 7.1 X10'3 (1.8-7.7); NEUTROPHILS % (AUTO) 72.4 % (42-75); PLATELET COUNT 241 X10'3 (140-440); RED BLOOD COUNT 3.04 X10'6 (4.70-6.10); RED CELL DISTRIBUTION WIDTH 16.9 % (11.5-14.5); WHITE BLOOD COUNT 9.8 X10'3 (4.5-11.0)
--- NOTE | 2018-09-24 06:34 | NUR ---
Problems reprioritized. Patient report given, questions answered & plan of care reviewed with Liana GUSTAFSON.
--- NOTE | 2018-09-24 06:50 | NUR ---
Patient in room PCU 3013. I have received report from Nikia GUSTAFSON and had the opportunity to ask questions and assume patient care.
[2018-09-24 07:00] VITALS: BP 114/49
[2018-09-24] MEDS: lactose-reduced food (Ensure High Protein) 237ml bottle PO SCH ×3 (08:35→18:45)
[2018-09-24] MEDS: carVEDilol 3.125mg tablet PO SCH ×2 (08:37→20:40)
[2018-09-24] MEDS: Terazosin 1mg capsule PO SCH (08:37)
[2018-09-24] MEDS: sodium ferric gluc complex inj 125 MG in normal saline 100ml IV soln 100 ML IV SCH (08:37)
[2018-09-24] MEDS: vitamin B comp w/Vit. C tab 1 TAB TABLET PO SCH (08:38)
[2018-09-24] MEDS: cholecalciferol (vitamin D) 400 unit tablet PO SCH (08:38)
[2018-09-24] MEDS: furosemide 40mg tablet PO SCH (08:38)
[2018-09-24] MEDS: isosorbide mononitrate 30mg tab.SR.24H PO SCH (08:38)
[2018-09-24] MEDS: cephalexin 500mg capsule PO SCH ×2 (08:38→20:40)
[2018-09-24] MEDS: pantoprazole 40mg Tablet.DR PO SCH ×2 (08:38→20:40)
[2018-09-24] MEDS: insulin Lispro (HumaLOG) vial - multi-dose SQ SCH ×3 (08:45→20:43)
--- NOTE | 2018-09-24 10:54 | NUR ---
reassessment: Pt PO 75-100% meals/ONS meeting needs. LBM 09/18 receiving miralax. RACH d/w RN for additional routine bowel care per MD approval for constipation. Will continue to monitor. Rec: 1. continue heart healthy diet 2. ensure high protein TIDWM 3. routine bowel care 4. weekly wts Addendum: 09/24/18 at [address] Amended: Links added.
[2018-09-24 10:58] LABS: HEMATOCRIT 28.3 % (42.0-52.0); HEMOGLOBIN 9.3 g/dl (14.0-17.9); MEAN CORPUSCULAR HEMOGLOBIN 31.1 PG (27.0-31.0); MEAN CORPUSCULAR VOLUME 94.2 FL (78-98); MEAN PLATELET VOLUME 7.6 FL (7.4-10.4); PLATELET COUNT 245 X10'3 (140-440); RED CELL DISTRIBUTION WIDTH 16.9 % (11.5-14.5); WHITE BLOOD COUNT 8.7 X10'3 (4.5-11.0)
[2018-09-24 11:00] VITALS: BP 98/41
[2018-09-24 15:00] VITALS: BP 111/41
[2018-09-24 18:00] VITALS: BP 155/64
[2018-09-24 18:01] LABS: HEMATOCRIT 29.7 % (42.0-52.0); HEMOGLOBIN 9.9 g/dl (14.0-17.9); MEAN CORPUSCULAR HEMOGLOBIN 31.4 PG (27.0-31.0); MEAN CORPUSCULAR HGB CONC 33.4 g/dL (33.0-36.5); MEAN PLATELET VOLUME 7.6 FL (7.4-10.4); PLATELET COUNT 264 X10'3 (140-440); RED BLOOD COUNT 3.16 X10'6 (4.70-6.10); RED CELL DISTRIBUTION WIDTH 16.8 % (11.5-14.5); WHITE BLOOD COUNT 11.2 X10'3 (4.5-11.0)
--- NOTE | 2018-09-24 18:17 | NUR ---
Problems reprioritized. Patient report given, questions answered & plan of care reviewed with Justina GUSTAFSON. Patient stable at transfer of care.
[2018-09-24] MEDS: lactobacillus rhamnosus 10,000 MMU CELLS/CAPSULE PO SCH (20:35)
[2018-09-24] MEDS: polyethylene glycol 3350 17gm powd pack PO SCH (20:40)
[2018-09-24] MEDS: atorvastatin 20mg tablet PO SCH (20:40)
[2018-09-24] MEDS: docusate sod 100mg capsule PO SCH (20:40)
[2018-09-24] MEDS: lisinopril 20mg tablet PO SCH (20:41)
[2018-09-24] MEDS: insulin glargine (Lantus) pen - multi-dose SQ SCH (20:44)
[2018-09-24 22:00] VITALS: BP 126/64
[2018-09-25 02:00] VITALS: BP 142/52
--- NOTE | 2018-09-25 03:13 | NUR ---
2:35AM pt called saying he was sweaty & feeling weak, break nurse checked BG which was 42. He requested 3 OJ's instead of the dextrose, after consuming those, his recheck at 2:50am was 58. Pt consumed 3 more OJ's and 3rd recheck was 89. He agreed to also eat a high protein maltese yogurt at that time with 12g of protein. Pt feeling much better, no longer sweaty or feeling weak. Will continue to monitor.
[2018-09-25 06:22] LABS: BASOPHILS # (AUTO) 0.1 X10'3 (0-0.2); BASOPHILS % (AUTO) 0.7 % (0-1); EOSINOPHILS % (AUTO) 0.5 % (0-6); HEMATOCRIT 26.5 % (42.0-52.0); LYMPHOCYTES # (AUTO) 0.6 X10'3 (1.1-4.8); LYMPHOCYTES % (AUTO) 6.8 % (21-51); MEAN CORPUSCULAR HEMOGLOBIN 31.8 PG (27.0-31.0); MEAN CORPUSCULAR HGB CONC 33.9 g/dL (33.0-36.5); MEAN CORPUSCULAR VOLUME 93.6 FL (78-98); MEAN PLATELET VOLUME 7.8 FL (7.4-10.4); MONOCYTES # (AUTO) 1.1 X10'3 (0-0.9); MONOCYTES % (AUTO) 11.3 % (2-12); NEUTROPHILS # (AUTO) 7.7 X10'3 (1.8-7.7); NEUTROPHILS % (AUTO) 80.7 % (42-75); PLATELET COUNT 272 X10'3 (140-440); RED BLOOD COUNT 2.83 X10'6 (4.70-6.10); RED CELL DISTRIBUTION WIDTH 16.6 % (11.5-14.5); WHITE BLOOD COUNT 9.6 X10'3 (4.5-11.0)
[2018-09-25 06:30] LABS: ALBUMIN 2.1 G/DL (3.4-5.0); ANION GAP 10 (8-16); BLOOD UREA NITROGEN 65 MG/DL (7-18); BUN/CREATININE RATIO 42.8 (5.4-32.0); CALCIUM 8.2 MG/DL (8.5-10.1); CHLORIDE 103 MMOL/L (99-107); CREATININE 1.52 MG/DL (0.60-1.10); GLUCOSE 182 MG/DL (70-104); MAGNESIUM 2.4 MG/DL (1.5-2.4); PHOSPHORUS 2.6 MG/DL (2.3-4.5); POTASSIUM 4.3 MMOL/L (3.5-5.1); SODIUM 134 MMOL/L (135-145); TOTAL CARBON DIOXIDE 21.3 MMOL/L (24-32); eGFR 44 ML/MIN
[2018-09-25 07:00] VITALS: BP 144/63
[2018-09-25] MEDS ORDERED: bisacodyl 10mg suppository rectal RC PRN (08:00)
[2018-09-25] MEDS: lactose-reduced food (Ensure High Protein) 237ml bottle PO SCH ×3 (08:00→17:32)
[2018-09-25] MEDS: carVEDilol 3.125mg tablet PO SCH ×2 (08:06→20:50)
[2018-09-25] MEDS: docusate sod 100mg capsule PO SCH ×2 (08:06→20:49)
[2018-09-25] MEDS: isosorbide mononitrate 30mg tab.SR.24H PO SCH (08:07)
[2018-09-25] MEDS: Terazosin 1mg capsule PO SCH (08:07)
[2018-09-25] MEDS: cephalexin 500mg capsule PO SCH ×2 (08:07→20:49)
[2018-09-25] MEDS: furosemide 40mg tablet PO SCH (08:07)
[2018-09-25] MEDS: pantoprazole 40mg Tablet.DR PO SCH ×2 (08:07→20:49)
[2018-09-25] MEDS: cholecalciferol (vitamin D) 400 unit tablet PO SCH (08:07)
[2018-09-25] MEDS: vitamin B comp w/Vit. C tab 1 TAB TABLET PO SCH (08:07)
[2018-09-25] MEDS: lactobacillus rhamnosus 10,000 MMU CELLS/CAPSULE PO SCH ×2 (08:07→20:51)
[2018-09-25] MEDS: insulin Lispro (HumaLOG) vial - multi-dose SQ SCH ×3 (08:09→20:05)
[2018-09-25] MEDS ORDERED: NORMAL SALINE IV ONE (13:20)
[2018-09-25] MEDS ORDERED: epoetin 20,000 units/ml inj IV ONE (13:20)
[2018-09-25] MEDS ORDERED: IRON SUCROSE COMPLEX IV ONE (13:20)
--- NOTE | 2018-09-25 13:25 | NUR ---
Diet alert: Pt says food is too hard, no taste, and no menu. RACH alerted dietary; care administrative tech to see pt w/ copy of pt menu so food preferences can be met. Pt no BM 7 days receiving multiple routine bowel care meds at this time. PO 50-75% meals. Will continue to monitor. Addendum: 09/25/18 at [address] Amended: Links added. Addendum: 09/25/18 at [address] Diet alert: Pt says food is too hard, no taste, and no menu. RACH alerted dietary; care administrative tech to see pt w/ copy of pt menu so food preferences can be met. Pt no BM 7 days receiving multiple routine bowel care meds at this time. PO 50-75% meals. RACH d/w RN regarding addition of carb controlled diet per MD approval given hx DM. Will continue to monitor.
[2018-09-25] MEDS ORDERED: IRON SUCROSE COMPLEX IV SCH ×2 (14:00→14:03)
[2018-09-25] MEDS ORDERED: NORMAL SALINE IV SCH ×2 (14:00→14:03)
[2018-09-25] MEDS ORDERED: epoetin 20,000 units/ml inj SQ ONE (14:25)
[2018-09-25] MEDS: NORMAL SALINE IV SCH ×2 (14:50→19:31)
[2018-09-25] MEDS: IRON SUCROSE COMPLEX IV SCH ×2 (14:50→19:31)
[2018-09-25 15:00] VITALS: BP 137/56
[2018-09-25] MEDS ORDERED: HYDROmorphone inj. 0.5 MG/0.5 ML DISP.SYRIN IV PRN (15:25)
[2018-09-25] MEDS ORDERED: cefepime 1GM in D5W 50mL IVPB IV SCH (16:00)
[2018-09-25] MEDS ORDERED: cefepime 2gm inj IV SCH (16:00)
[2018-09-25] MEDS: cefepime 1GM in D5W 50mL 50 ML IV SCH ×2 (17:27→20:51)
[2018-09-25 18:00] VITALS: BP 152/67
--- NOTE | 2018-09-25 18:37 | NUR ---
Patient in room PCU 3013. I have received report from Liana GUSTAFSON and had the opportunity to ask questions and assume patient care.
[2018-09-25] MEDS: VANCOmycin 1250MG/NS 250ml Bag 250 ML IV SCH (18:53)
[2018-09-25] MEDS: polyethylene glycol 3350 17gm powd pack PO SCH (20:48)
[2018-09-25] MEDS: atorvastatin 20mg tablet PO SCH (20:49)
[2018-09-25] MEDS: lisinopril 20mg tablet PO SCH (20:51)
[2018-09-25] MEDS: insulin glargine (Lantus) pen - multi-dose SQ SCH (21:06)
[2018-09-25 22:00] VITALS: BP 136/50
[2018-09-26 02:00] VITALS: BP 110/44
[2018-09-26 05:12] LABS: BASOPHILS # (AUTO) 0.1 X10'3 (0-0.2); BASOPHILS % (AUTO) 1.1 % (0-1); EOSINOPHILS # (AUTO) 0.1 X10'3 (0-0.9); HEMATOCRIT 27.8 % (42.0-52.0); HEMOGLOBIN 9.2 g/dl (14.0-17.9); LYMPHOCYTES # (AUTO) 0.8 X10'3 (1.1-4.8); LYMPHOCYTES % (AUTO) 8.8 % (21-51); MEAN CORPUSCULAR HEMOGLOBIN 31.2 PG (27.0-31.0); MEAN CORPUSCULAR HGB CONC 33.2 g/dL (33.0-36.5); MEAN CORPUSCULAR VOLUME 93.8 FL (78-98); MEAN PLATELET VOLUME 7.5 FL (7.4-10.4); MONOCYTES # (AUTO) 1.2 X10'3 (0-0.9); MONOCYTES % (AUTO) 12.1 % (2-12); NEUTROPHILS # (AUTO) 7.4 X10'3 (1.8-7.7); PLATELET COUNT 322 X10'3 (140-440); RED BLOOD COUNT 2.96 X10'6 (4.70-6.10); RED CELL DISTRIBUTION WIDTH 16.9 % (11.5-14.5); WHITE BLOOD COUNT 9.6 X10'3 (4.5-11.0)
[2018-09-26 05:32] LABS: ALBUMIN 2.2 G/DL (3.4-5.0); ANION GAP 7 (8-16); BLOOD UREA NITROGEN 57 MG/DL (7-18); BUN/CREATININE RATIO 44.5 (5.4-32.0); CALCIUM 8.2 MG/DL (8.5-10.1); CHLORIDE 105 MMOL/L (99-107); CREATININE 1.28 MG/DL (0.60-1.10); GLUCOSE 124 MG/DL (70-104); POTASSIUM 4.4 MMOL/L (3.5-5.1); SODIUM 136 MMOL/L (135-145); TOTAL CARBON DIOXIDE 24.1 MMOL/L (24-32); eGFR 53 ML/MIN
[2018-09-26 06:30] VITALS: BP 159/66
--- NOTE | 2018-09-26 06:30 | NUR ---
Patient in room PCU 3013A. I have received report from Leonora GUSTAFSON and had the opportunity to ask questions and assume patient care.
--- NOTE | 2018-09-26 06:33 | NUR ---
Problems reprioritized. Patient report given, questions answered & plan of care reviewed with Dalia GUSTAFSON.
[2018-09-26] MEDS: lactose-reduced food (Ensure High Protein) 237ml bottle PO SCH ×3 (08:00→18:00)
[2018-09-26] MEDS: cephalexin 500mg capsule PO SCH (08:39)
[2018-09-26] MEDS: furosemide 40mg tablet PO SCH (08:39)
[2018-09-26] MEDS: cefepime 1GM in D5W 50mL 50 ML IV SCH ×2 (08:39→20:34)
[2018-09-26] MEDS: vitamin B comp w/Vit. C tab 1 TAB TABLET PO SCH (08:40)
[2018-09-26] MEDS: pantoprazole 40mg Tablet.DR PO SCH (08:40)
[2018-09-26] MEDS: lactobacillus rhamnosus 10,000 MMU CELLS/CAPSULE PO SCH ×2 (08:40→20:34)
[2018-09-26] MEDS: carVEDilol 3.125mg tablet PO SCH ×2 (08:40→20:34)
[2018-09-26] MEDS: docusate sod 100mg capsule PO SCH ×2 (08:40→20:35)
[2018-09-26] MEDS: cholecalciferol (vitamin D) 400 unit tablet PO SCH (08:40)
[2018-09-26] MEDS: Terazosin 1mg capsule PO SCH (08:40)
[2018-09-26] MEDS: isosorbide mononitrate 30mg tab.SR.24H PO SCH (08:40)
[2018-09-26] MEDS: insulin Lispro (HumaLOG) vial - multi-dose SQ SCH ×3 (09:42→21:30)
--- NOTE | 2018-09-26 10:58 | NUR ---
Patient in room PCU 3013. I have received report from Leonora GUSTAFSON and had the opportunity to ask questions and assume patient care.
[2018-09-26 11:00] VITALS: BP 145/82
--- NOTE | 2018-09-26 11:37 | NUR ---
Paged RT for PRN breathing treatment RE Marry Herzog [id number]. New order from MD for PRN breathing treatment. Patient is requesting PRN now. Thank you!
[2018-09-26] MEDS: albuterol 2.5 MG/3 ML nebule NEB PRN ×3 (11:49→21:44)
[2018-09-26] MEDS: nitroGLYCERIN 0.4mg SUBLingual tab SL PRN (12:27)
--- NOTE | 2018-09-26 12:44 | NUR ---
Per Dr Logn, no need to continue further neuro checks. Intervention status completed
[2018-09-26 15:00] VITALS: BP 141/60
[2018-09-26] MEDS ORDERED: furosemide 40mg/4ml inj IV ONE (15:05)
[2018-09-26] MEDS: VANCOmycin 1250MG/NS 250ml Bag 250 ML IV SCH (15:31)
--- NOTE | 2018-09-26 18:22 | NUR ---
Problems reprioritized. Patient report given, questions answered & plan of care reviewed with Nikia GUSTAFSON.
--- NOTE | 2018-09-26 18:30 | NUR ---
Patient in room PCU 3013. I have received report from Trudy GUSTAFSON & Cristine GUSTAFSON and had the opportunity to ask questions and assume patient care.
--- NOTE | 2018-09-26 18:37 | NUR ---
Problems reprioritized. Patient report given, questions answered & plan of care reviewed with Nikia GUSTAFSON.
--- NOTE | 2018-09-26 18:37 | NUR ---
Alok hire: I have reviewed and agree with all interventions, assessments performed and documented by Erick GUSTAFSON .
[2018-09-26 19:00] VITALS: BP 139/47
[2018-09-26] MEDS: polyethylene glycol 3350 17gm powd pack PO SCH (20:33)
[2018-09-26] MEDS: atorvastatin 20mg tablet PO SCH (20:34)
[2018-09-26] MEDS: lisinopril 20mg tablet PO SCH (20:35)
[2018-09-26] MEDS: insulin glargine (Lantus) pen - multi-dose SQ SCH (21:30)
[2018-09-26 23:00] VITALS: BP 120/59
[2018-09-27] MEDS: albuterol 2.5 MG/3 ML nebule NEB PRN ×2 (02:48→07:30)
[2018-09-27 03:00] VITALS: BP 129/59
[2018-09-27 04:54] LABS: BASOPHILS # (AUTO) 0.1 X10'3 (0-0.2); BASOPHILS % (AUTO) 1.1 % (0-1); EOSINOPHILS # (AUTO) 0.1 X10'3 (0-0.9); EOSINOPHILS % (AUTO) 1.4 % (0-6); HEMATOCRIT 27.8 % (42.0-52.0); HEMOGLOBIN 9.2 g/dl (14.0-17.9); LYMPHOCYTES # (AUTO) 0.9 X10'3 (1.1-4.8); MEAN CORPUSCULAR HEMOGLOBIN 30.9 PG (27.0-31.0); MEAN CORPUSCULAR HGB CONC 33.2 g/dL (33.0-36.5); MEAN PLATELET VOLUME 7.2 FL (7.4-10.4); MONOCYTES % (AUTO) 10.6 % (2-12); NEUTROPHILS # (AUTO) 7.6 X10'3 (1.8-7.7); NEUTROPHILS % (AUTO) 77.9 % (42-75); PLATELET COUNT 367 X10'3 (140-440); RED BLOOD COUNT 2.99 X10'6 (4.70-6.10); RED CELL DISTRIBUTION WIDTH 17.1 % (11.5-14.5); WHITE BLOOD COUNT 9.8 X10'3 (4.5-11.0)
[2018-09-27 05:10] LABS: POTASSIUM 4.3 MMOL/L (3.5-5.1)
[2018-09-27 05:33] LABS: ALBUMIN 2.2 G/DL (3.4-5.0); ANION GAP 11 (8-16); BLOOD UREA NITROGEN 48 MG/DL (7-18); BUN/CREATININE RATIO 40.3 (5.4-32.0); CALCIUM 8.2 MG/DL (8.5-10.1); CHLORIDE 104 MMOL/L (99-107); CREATININE 1.19 MG/DL (0.60-1.10); GLUCOSE 123 MG/DL (70-104); SODIUM 139 MMOL/L (135-145); TOTAL CARBON DIOXIDE 24.1 MMOL/L (24-32); eGFR 58 ML/MIN
[2018-09-27 06:00] VITALS: BP 135/52
--- NOTE | 2018-09-27 06:00 | NUR ---
Patient in room PCU 3013. I have received report from Nikia GUSTAFSON and had the opportunity to ask questions and assume patient care.
--- NOTE | 2018-09-27 06:23 | NUR ---
Problems reprioritized. Patient report given, questions answered & plan of care reviewed with Nabil RN & Nicole RN.
--- NOTE | 2018-09-27 06:43 | NUR ---
Patient in room PCU 3013. I have received report from Nikia GUSTAFSON and had the opportunity to ask questions and assume patient care.
[2018-09-27] MEDS: Terazosin 1mg capsule PO SCH (07:29)
[2018-09-27] MEDS: isosorbide mononitrate 30mg tab.SR.24H PO SCH (07:29)
[2018-09-27] MEDS: vitamin B comp w/Vit. C tab 1 TAB TABLET PO SCH (07:29)
[2018-09-27] MEDS: docusate sod 100mg capsule PO SCH (07:29)
[2018-09-27] MEDS: lactobacillus rhamnosus 10,000 MMU CELLS/CAPSULE PO SCH (07:29)
[2018-09-27] MEDS: cholecalciferol (vitamin D) 400 unit tablet PO SCH (07:29)
[2018-09-27] MEDS: cefepime 1GM in D5W 50mL 50 ML IV SCH (07:30)
[2018-09-27] MEDS: carVEDilol 3.125mg tablet PO SCH (07:30)
[2018-09-27] MEDS: furosemide 40mg tablet PO SCH (07:30)
[2018-09-27] MEDS ORDERED: pantoprazole 40mg Tablet.DR PO SCH (08:00)
[2018-09-27] MEDS: lactose-reduced food (Ensure High Protein) 237ml bottle PO SCH ×2 (08:33→13:00)
[2018-09-27] MEDS: insulin Lispro (HumaLOG) vial - multi-dose SQ SCH ×2 (08:36→13:39)
[2018-09-27] MEDS ORDERED: epoetin 20,000 units/ml inj SQ ONE (09:50)
[2018-09-27 11:00] VITALS: BP 122/54
--- NOTE | 2018-09-27 11:00 | NUR ---
O2 Sat at rest on room air:_94__% If below 89%: Recovery O2 Sat at rest on ___LPM:___%:___% via (mask/nasal cannula, etc..) No further documentation is necessary. If O2 Sat did not drop below 89% on room air,ambulate patient on room air. O2 Sat while ambulating on room air:__93_% Recovery O2 Sat while ambulating on ___LPM:___% No further documentation is necessary. If patient does not drop below 89% while ambulating, he/she does not qualify for home O2.
[2018-09-27] MEDS ORDERED: NITR0.4T51 SL (13:18)
[2018-09-27] MEDS ORDERED: CEPH-572 PO (13:18)
[2018-09-27] MEDS ORDERED: POTA10TA19 PO (13:18)
[2018-09-27] MEDS ORDERED: FURO20TA4 PO (13:18)
[2018-09-27] MEDS ORDERED: ISOS30TA6 PO (13:18)
--- NOTE | 2018-09-27 15:00 | NUR ---
Patient stable for discharge per md orders, discharge instructions reviewed with patient and all questions asked, new medication prescription called in to [facility] pharmacy per patient request, tele 45 removed and returned, IV dc'ed and clean dry dressing in place, pt wheeled to lobby with hospital staff, patient discharged to home @ 1500 with and daughter via private vehicle, all belongings with pt at time of discharge
--- NOTE | 2018-09-27 15:00 | NUR ---
I have reviewed orientee RN's charting and I agree with it.
[2018-09-27] MEDS ORDERED: VANCOmycin 1250MG/NS 250ml Bag 250 ML IV SCH (16:00)
[2018-09-28] MEDS ORDERED: VANCOMYCIN LEVEL IV ONE (15:30)
[2018-09-29] MEDS ORDERED: VANCOMYCIN LEVEL IV ONE (03:30)
== END 2018-09-27 15:05 | disposition home health service (06) | DRG 242 ==
LOC: ER 18:10 → OBSVTOIN 21:50 → PCU 3S 21:50 → CMPBEDREQ 09-18 21:00 → CICU 2S 09-19 11:20 → PCU 3S 09-22 21:14
PROVIDERS: ADMIT Hospitalist; ATTEND Internal Medicine Critical Care Medicine
PROC: 4A023N7 Measurement of Cardiac Sampling and Pressure, Left Heart, Percutaneous Approach (ICD-10-PCS; 2018-09-18)
PROC: B2111ZZ Fluoroscopy of Multiple Coronary Arteries using Low Osmolar Contrast (ICD-10-PCS; 2018-09-18)
PROC: B2151ZZ Fluoroscopy of Left Heart using Low Osmolar Contrast (ICD-10-PCS; 2018-09-18)
PROC: B2131ZZ Fluoroscopy of Multiple Coronary Artery Bypass Grafts using Low Osmolar Contrast (ICD-10-PCS; 2018-09-18)
PROC: 30233N1 Transfusion of Nonautologous Red Blood Cells into Peripheral Vein, Percutaneous Approach (ICD-10-PCS; principal; 2018-09-19)
PROC: 0JH606Z Insertion of Pacemaker, Dual Chamber into Chest Subcutaneous Tissue and Fascia, Open Approach (ICD-10-PCS; 2018-09-19)
PROC: 02HK3JZ Insertion of Pacemaker Lead into Right Ventricle, Percutaneous Approach (ICD-10-PCS; 2018-09-19)
PROC: 02H63JZ Insertion of Pacemaker Lead into Right Atrium, Percutaneous Approach (ICD-10-PCS; 2018-09-19)
PROC: 30233N1 Transfusion of Nonautologous Red Blood Cells into Peripheral Vein, Percutaneous Approach (ICD-10-PCS; 2018-09-20)
DX: I21.4 Non-ST elevation (NSTEMI) myocardial infarction (principal); N17.0 Acute kidney failure with tubular necrosis; I50.22 Chronic systolic (congestive) heart failure; D62 Acute posthemorrhagic anemia; E87.1 Hypo-osmolality and hyponatremia; I13.0 Hypertensive heart and chronic kidney disease with heart failure and stage 1 through stage 4 chronic kidney disease, or unspecified chronic kidney disease; K92.1 Melena; T82.897A Other specified complication of cardiac prosthetic devices, implants and grafts, initial encounter; I48.91 Unspecified atrial fibrillation; K59.00 Constipation, unspecified; I65.29 Occlusion and stenosis of unspecified carotid artery; E66.9 Obesity, unspecified; E11.22 Type 2 diabetes mellitus with diabetic chronic kidney disease; I49.5 Sick sinus syndrome; E78.5 Hyperlipidemia, unspecified; N18.3 Chronic kidney disease, stage 3 (moderate); E11.51 Type 2 diabetes mellitus with diabetic peripheral angiopathy without gangrene; Y71.3 Surgical instruments, materials and cardiovascular devices (including sutures) associated with adverse incidents; I25.10 Atherosclerotic heart disease of native coronary artery without angina pectoris; I45.10 Unspecified right bundle-branch block; I80.8 Phlebitis and thrombophlebitis of other sites; I25.2 Old myocardial infarction; Z79.899 Other long term (current) drug therapy; Z87.891 Personal history of nicotine dependence; Z95.1 Presence of aortocoronary bypass graft; Z98.61 Coronary angioplasty status; Z79.82 Long term (current) use of aspirin; Z79.4 Long term (current) use of insulin; Z68.30 Body mass index [BMI] 30.0-30.9, adult; Y92.89 Other specified places as the place of occurrence of the external cause
CPT/HCPCS: 33208; 36415; 70450; 71045; 76937; 80048; 80053; 80061; 82948; 83036; 83540; 83550; 83735; 83880; 84100; 84145; 84484; 85025; 85027; 85045; 85610; 85730; 86885; 86900; 86901; 86920; 87040; 87081; 93005; 93306; 93459; 94640; 94760; 97110; 97116; 97161; 97530; 99152; 99153; 99285; A4565; A4620; A6258; C1760; C1769; C1785; C1786; C1898; C9113; G0378; J0690; J0692; J1265; J1644; J1756; J1815; J1940; J2001; J2250; J2270; J2405; J2916; J3010; J3246; J3370; J3490; J7050; P9016; Q4081; Q9967

== ENCOUNTER 2018-10-01 11:20 | Emergency (ER) | payer MEDICARE, OTHER ==
[~2018-10-01] VITALS: Ht 180.3 cm; Wt 97.0 kg
[~2018-10-01 11:20] MED LIST changes: +CEPH-572 PO; -IRON150C5 PO; +ISOS30TA6 PO; +NITR0.4T51 SL; +POTA10TA19 PO; +TERA2CAP4 PO; -VITA100D6 PO
[2018-10-01 12:21] LABS: BASOPHILS # (AUTO) 0.1 X10'3 (0-0.2); BASOPHILS % (AUTO) 1.3 % (0-1); EOSINOPHILS # (AUTO) 0.3 X10'3 (0-0.9); HEMATOCRIT 28.7 % (42.0-52.0); HEMOGLOBIN 9.6 g/dl (14.0-17.9); LYMPHOCYTES # (AUTO) 1.3 X10'3 (1.1-4.8); LYMPHOCYTES % (AUTO) 14.9 % (21-51); MEAN CORPUSCULAR HEMOGLOBIN 31.7 PG (27.0-31.0); MEAN CORPUSCULAR HGB CONC 33.5 g/dL (33.0-36.5); MEAN CORPUSCULAR VOLUME 94.7 FL (78-98); MEAN PLATELET VOLUME 6.7 FL (7.4-10.4); MONOCYTES # (AUTO) 0.6 X10'3 (0-0.9); MONOCYTES % (AUTO) 7.5 % (2-12); NEUTROPHILS # (AUTO) 6.3 X10'3 (1.8-7.7); NEUTROPHILS % (AUTO) 73.3 % (42-75); PLATELET COUNT 598 X10'3 (140-440); RED BLOOD COUNT 3.02 X10'6 (4.70-6.10); RED CELL DISTRIBUTION WIDTH 17.6 % (11.5-14.5); WHITE BLOOD COUNT 8.5 X10'3 (4.5-11.0)
[2018-10-01 12:46] VITALS: BP 128/82
== END 2018-10-01 12:48 | disposition home or self-care (01) ==
LOC: ER 11:21
DX: D50.0 Iron deficiency anemia secondary to blood loss (chronic) (principal); R06.02 Shortness of breath; I25.10 Atherosclerotic heart disease of native coronary artery without angina pectoris; I50.9 Heart failure, unspecified; I11.0 Hypertensive heart disease with heart failure; I25.2 Old myocardial infarction; E11.9 Type 2 diabetes mellitus without complications; Z87.891 Personal history of nicotine dependence; Z95.1 Presence of aortocoronary bypass graft; Z79.82 Long term (current) use of aspirin; Z79.899 Other long term (current) drug therapy
CPT/HCPCS: 36415; 85025; 99284

== ENCOUNTER 2018-11-03 11:26 | Outpatient (CLI) | payer MEDICARE, OTHER ==
[~2018-11-03 11:26] MED LIST changes: -CEPH-572 PO; -POTA10TA19 PO
[2018-11-03 12:13] LABS: BASOPHILS # (AUTO) 0.2 X10'3 (0-0.2); EOSINOPHILS # (AUTO) 0.6 X10'3 (0-0.9); MONOCYTES # (AUTO) 0.6 X10'3 (0-0.9); MONOCYTES % (AUTO) 7.3 % (2-12)
[2018-11-03 12:14] LABS: EOSINOPHILS % (AUTO) 7.5 % (0-6); HEMATOCRIT 35.5 % (42.0-52.0); HEMOGLOBIN 11.5 g/dl (14.0-17.9); LYMPHOCYTES # (AUTO) 1.7 X10'3 (1.1-4.8); LYMPHOCYTES % (AUTO) 21.8 % (21-51); MEAN CORPUSCULAR HEMOGLOBIN 30.7 PG (27.0-31.0); MEAN CORPUSCULAR HGB CONC 32.5 g/dL (33.0-36.5); MEAN CORPUSCULAR VOLUME 94.5 FL (78-98); MEAN PLATELET VOLUME 6.7 FL (7.4-10.4); NEUTROPHILS # (AUTO) 4.7 X10'3 (1.8-7.7); NEUTROPHILS % (AUTO) 61.4 % (42-75); PLATELET COUNT 315 X10'3 (140-440); RED BLOOD COUNT 3.75 X10'6 (4.70-6.10); RED CELL DISTRIBUTION WIDTH 17.9 % (11.5-14.5); WHITE BLOOD COUNT 7.7 X10'3 (4.5-11.0)
[2018-11-03 12:30] LABS: ALANINE AMINOTRANSFERASE 19 U/L (12-78); ALBUMIN 3.6 G/DL (3.4-5.0); ALBUMIN/GLOBULIN RATIO 0.9 (1.1-1.5); ALKALINE PHOSPHATASE 69 IU/L (46-116); ANION GAP 7 (8-16); ASPARTATE AMINO TRANSFERASE 13 U/L (10-37); BILIRUBIN,TOTAL 0.4 MG/DL (0.1-1.0); BLOOD UREA NITROGEN 38 MG/DL (7-18); CALCIUM 9.4 MG/DL (8.5-10.1); CHLORIDE 107 MMOL/L (99-107); CREATININE 1.52 MG/DL (0.60-1.10); GLUCOSE 115 MG/DL (70-104); POTASSIUM 5.9 MMOL/L (3.5-5.1); SODIUM 138 MMOL/L (135-145); TOTAL CARBON DIOXIDE 23.7 MMOL/L (24-32); TOTAL PROTEIN 7.4 G/DL (6.4-8.2); eGFR 44 ML/MIN
[2018-11-03 14:54] LABS: ANISOCYTOSIS 1+; PLATELET ESTIMATE NORMAL
[2018-11-03 14:55] LABS: BURR CELLS 1+; HYPOCHROMASIA 1+
== END 2018-11-03 23:59 | disposition home or self-care (01) ==
LOC: LAB 11:26
PROVIDERS: ATTEND Internal Medicine
DX: D53.9 Nutritional anemia, unspecified (principal); I50.9 Heart failure, unspecified
CPT/HCPCS: 36415; 80053; 85025